=== PATIENT | female | born 1960 | race Caucasian/White ===

== ENCOUNTER 2017-04-18 16:34 | Emergency (ER) | payer MEDICARE, OTHER ==
[~2017-04-18] VITALS: Ht 160 cm; Wt 68.0 kg
[~2017-04-18 16:34] MED LIST: ALBU90OI INH; ALBU90OI6 INH; ALBU90OI61 INH; AMLO10 PO; AMLO5 PO; AZIT250 PO; BUDE6HFA INH; Bactrim Ds Tab1 EACH PO; CIPR500 PO; Cyclobenzaprine5 MG PO; DOCU100 PO; FERR325 PO; GUAI600T33 PO; HYDCHL25 PO; IRON; LEVO750 PO; LOSARTAN POTASS50 MG PO; Naprosyn500 MG PO; OXYACE5T PO; PRED20 PO; Prednisone10 MG PO; ROFL500T; RXTRAM50 PO; TIOT18 INH; TRAM50 PO; [UNRECOGNIZED DRUG - OTHER] PO
[2017-04-18] MEDS ORDERED: Augmentin 875-1 EACH PO (16:51)
[2018-02-01] MEDS ORDERED: Zithromax250 MG PO (21:57)
[2018-02-24] MEDS ORDERED: ATOR10 PO (13:50)
[2018-02-24] MEDS ORDERED: CLON.1 PO (13:51)
[2018-02-24] MEDS ORDERED: DILT120 PO (13:52)
[2018-02-24] MEDS ORDERED: DOXA1 PO (13:53)
[2018-02-24] MEDS ORDERED: HYDCHL25 PO (13:53)
[2018-02-24] MEDS ORDERED: PRED10 PO (14:14)
[2018-02-24] MEDS ORDERED: DULERA 100 MCG/13 GM INH (14:15)
== END 2017-04-18 16:54 | disposition home or self-care (01) ==
LOC: ER 16:34
DX: K04.7 Periapical abscess without sinus (principal); Z88.8 Allergy status to other drugs, medicaments and biological substances; Z88.5 Allergy status to narcotic agent; Z79.899 Other long term (current) drug therapy; Z79.52 Long term (current) use of systemic steroids; J44.9 Chronic obstructive pulmonary disease, unspecified; Z87.891 Personal history of nicotine dependence
CPT/HCPCS: 99282

== ENCOUNTER → 2017-08-04 | Outpatient (CLI) | payer MEDICARE, OTHER ==
[~2017-08-04] MED LIST changes: +Augmentin 875-1 EACH PO
[2017-08-04 12:40] LABS: BASOPHILS ABSOLUTE AUTO 0.06 K/mm3 (0.00-0.23); BASOPHILS PERCENT AUTO 1 % (0-2); EOSINOPHILS ABSOLUTE AUTO 1.25 K/mm3 (0.00-0.68); EOSINOPHILS PERCENT AUTO 16 % (0-6); Hematocrit 37.3 % (33.0-51.0); Hemoglobin 11.4 g/dL (11.5-16.0); IMMATURE GRAN ABSOLUTE AUTO 0.02 K/mm3 (0.00-0.10); IMMATURE GRAN PERCENT AUTO 0 % (0-1); LYMPHOCYTES ABSOLUTE AUTO 1.21 K/mm3 (0.84-5.20); LYMPHOCYTES PERCENT AUTO 15 % (21-46); MONOCYTES ABSOLUTE AUTO 0.76 K/mm3 (0.16-1.47); MONOCYTES PERCENT AUTO 10 % (4-13); Mean Corpuscular HGB 25.1 pg (26.0-34.0); Mean Corpuscular HGB Conc 30.6 g/dL (31.5-36.5); Mean Corpuscular Volume 82 fL (80-100); Mean Platelet Volume 9.4 fL (9.1-12.4); NEUTROPHILS ABSOLUTE AUTO 4.58 K/mm3 (1.96-9.15); NEUTROPHILS PERCENT AUTO 58 % (41-73); Platelet Count 288 K/mm3 (150-400); RDW Coefficient Variation 16.8 % (11.7-14.2); RDW Standard Deviation 50.1 fL (35.1-46.3); Red Blood Cell Count 4.54 M/mm3 (3.80-5.20); White Blood Cell Count 7.88 K/mm3 (4.00-11.30)
[2017-08-04 12:59] LABS: Alanine Aminotransfer (ALT/SGP 21 U/L (12-78); Albumin, Blood 4.1 g/dL (3.4-5.0); Alk Phos 92 U/L (40-126); Anion Gap 5 mmol/L (6-16); Aspartate Aminotrans (AST/SGOT 19 U/L (12-37); Bilirubin, Total 0.2 mg/dL (0.1-1.0); Blood Urea Nitrogen 8 mg/dL (8-24); Bun/Creatinine Ratio 14.5 (12.0-20.0); CO2, Blood 38 mmol/L (21-32); Calcium, Blood 9.7 mg/dL (8.5-10.1); Chloride, Blood 97 mmol/L (98-108); Creatinine, Blood 0.55 mg/dL (0.40-1.00); Glomerular Filtration Rate >60 (60-); Glucose, Blood 106 mg/dL (70-99); Sodium, Blood 140 mmol/L (136-145); Total Protein, Blood 8.1 g/dL (6.4-8.2)
== END | disposition home or self-care (01) ==
LOC: LAB SHORT 12:34 → LAB EV 12:34
PROVIDERS: Physician Assistant
DX: R06.02 Shortness of breath (principal); Z86.2 Personal history of diseases of the blood and blood-forming organs and certain disorders involving the immune mechanism
CPT/HCPCS: 80053; 83880; 85025

== ENCOUNTER 2017-08-30 03:09 | Inpatient (IN) | payer MEDICARE, OTHER ==
[~2017-08-30] VITALS: Ht 160 cm; Wt 72.4 kg
[2017-08-30] MEDS ORDERED: ACET325 PO (03:22)
[2017-08-30 03:23] LABS: BASOPHILS ABSOLUTE AUTO 0.08 K/mm3 (0.00-0.23); BASOPHILS PERCENT AUTO 1 % (0-2); EOSINOPHILS ABSOLUTE AUTO 0.59 K/mm3 (0.00-0.68); EOSINOPHILS PERCENT AUTO 5 % (0-6); Hemoglobin 11.7 g/dL (11.5-16.0); IMMATURE GRAN ABSOLUTE AUTO 0.02 K/mm3 (0.00-0.10); IMMATURE GRAN PERCENT AUTO 0 % (0-1); LYMPHOCYTES ABSOLUTE AUTO 1.94 K/mm3 (0.84-5.20); LYMPHOCYTES PERCENT AUTO 16 % (21-46); MONOCYTES ABSOLUTE AUTO 1.29 K/mm3 (0.16-1.47); MONOCYTES PERCENT AUTO 11 % (4-13); Mean Corpuscular HGB 25.5 pg (26.0-34.0); Mean Corpuscular HGB Conc 30.8 g/dL (31.5-36.5); Mean Corpuscular Volume 83 fL (80-100); Mean Platelet Volume 9.4 fL (9.1-12.4); NEUTROPHILS ABSOLUTE AUTO 8.08 K/mm3 (1.96-9.15); NEUTROPHILS PERCENT AUTO 67 % (41-73); Platelet Count 392 K/mm3 (150-400); RDW Standard Deviation 48.6 fL (35.1-46.3); Red Blood Cell Count 4.58 M/mm3 (3.80-5.20)
[2017-08-30] MEDS ORDERED: INCRUSE ELLI62.5 MCG INH (03:23)
[2017-08-30] MEDS ORDERED: BREO ELLIPTA 11 EACH INH (03:24)
[2017-08-30 03:25] LABS: PCO2 Arterial 76.5 mmHg (35-45); pH Blood Arterial 7.27 (7.35-7.45)
[2017-08-30 03:43] LABS: Alanine Aminotransfer (ALT/SGP 18 U/L (12-78); Alk Phos 130 U/L (50-136); Anion Gap 9 mmol/L (6-16); Aspartate Aminotrans (AST/SGOT 19 U/L (12-37); Bilirubin, Total 0.6 mg/dL (0.1-1.0); Blood Urea Nitrogen 14 mg/dL (8-24); Bun/Creatinine Ratio 21.9 (12.0-20.0); CO2, Blood 32 mmol/L (21-32); Calcium, Blood 9.4 mg/dL (8.5-10.1); Chloride, Blood 96 mmol/L (98-108); Creatinine, Blood 0.64 mg/dL (0.40-1.00); Globulin, Blood 4.1 g/dL (2.2-4.0); Glomerular Filtration Rate >60 (60-); Glucose, Blood 176 mg/dL (70-99); Magnesium, Blood 1.7 mg/dL (1.6-2.4); Potassium, Blood 3.6 mmol/L (3.5-5.5); Sodium, Blood 137 mmol/L (136-145); Total Protein, Blood 8.1 g/dL (6.4-8.2); Troponin I <0.015 ng/mL (0.000-0.040)
[2017-08-30] MEDS ORDERED: Phentermine HCl30 MG (05:23)
[2017-08-30] MEDS ORDERED: Phentermine HCl30 MG PO (12:15)
[2017-08-30] MEDS ORDERED: IBUP800 PO (12:16)
[2017-08-30 14:19] LABS: PCO2 Arterial 62.7 mmHg (35-45); PO2 Arterial 84.7 mmHg (80-100); pH Blood Arterial 7.37 (7.35-7.45)
[2017-08-30 15:20] LABS: Hematocrit 34.2 % (33.0-51.0); Hemoglobin 10.7 g/dL (11.5-16.0); Mean Corpuscular HGB 25.6 pg (26.0-34.0); Mean Corpuscular HGB Conc 31.3 g/dL (31.5-36.5); Mean Corpuscular Volume 82 fL (80-100); Mean Platelet Volume 9.9 fL (9.1-12.4); Platelet Count 251 K/mm3 (150-400); Red Blood Cell Count 4.18 M/mm3 (3.80-5.20); White Blood Cell Count 7.59 K/mm3 (4.00-11.30)
[2017-08-30 15:37] LABS: Alanine Aminotransfer (ALT/SGP 17 U/L (12-78); Albumin, Blood 3.7 g/dL (3.4-5.0); Alk Phos 122 U/L (50-136); Anion Gap 10 mmol/L (6-16); Aspartate Aminotrans (AST/SGOT 19 U/L (12-37); Bilirubin, Total 0.4 mg/dL (0.1-1.0); Blood Urea Nitrogen 14 mg/dL (8-24); Bun/Creatinine Ratio 25.5 (12.0-20.0); CO2, Blood 32 mmol/L (21-32); Calcium, Blood 9.3 mg/dL (8.5-10.1); Chloride, Blood 95 mmol/L (98-108); Creatinine, Blood 0.55 mg/dL (0.40-1.00); Globulin, Blood 3.8 g/dL (2.2-4.0); Glomerular Filtration Rate >60 (60-); Glucose, Blood 195 mg/dL (70-99); Potassium, Blood 3.2 mmol/L (3.5-5.5); Sodium, Blood 137 mmol/L (136-145); Total Protein, Blood 7.5 g/dL (6.4-8.2)
[2017-08-31 04:48] LABS: Hematocrit 32.5 % (33.0-51.0); Hemoglobin 10.1 g/dL (11.5-16.0); Mean Corpuscular HGB 25.8 pg (26.0-34.0); Mean Corpuscular HGB Conc 31.1 g/dL (31.5-36.5); Mean Corpuscular Volume 83 fL (80-100); Mean Platelet Volume 10.2 fL (9.1-12.4); Platelet Count 270 K/mm3 (150-400); RDW Coefficient Variation 16.1 % (11.7-14.2); RDW Standard Deviation 49.4 fL (35.1-46.3); Red Blood Cell Count 3.91 M/mm3 (3.80-5.20); White Blood Cell Count 10.91 K/mm3 (4.00-11.30)
[2017-08-31 05:08] LABS: Anion Gap 5 mmol/L (6-16); Blood Urea Nitrogen 12 mg/dL (8-24); Bun/Creatinine Ratio 24.6 (12.0-20.0); CO2, Blood 32 mmol/L (21-32); Calcium, Blood 8.7 mg/dL (8.5-10.1); Chloride, Blood 103 mmol/L (98-108); Creatinine, Blood 0.49 mg/dL (0.40-1.00); Glomerular Filtration Rate >60 (60-); Glucose, Blood 176 mg/dL (70-99); Potassium, Blood 3.5 mmol/L (3.5-5.5); Sodium, Blood 140 mmol/L (136-145)
[2017-09-02] MEDS ORDERED: Mucinex1200 MG PO (11:32)
[2017-09-02] MEDS ORDERED: ALBU3IS INH (11:33)
[2017-09-02] MEDS ORDERED: LEVFLO500 PO (11:34)
[2017-09-02] MEDS ORDERED: ACIDOPHILUS1 EAC2 PO (11:36)
[2017-09-02] MEDS ORDERED: PRED20 PO (11:37)
== END 2017-09-02 12:32 | disposition home or self-care (01) | DRG 189 ==
LOC: ER 03:09 → ICUW 04:32 → MEDS 08-31 12:30
PROVIDERS: Emergency Medicine; Internal Medicine
DX: J96.21 Acute and chronic respiratory failure with hypoxia (principal); J44.1 Chronic obstructive pulmonary disease with (acute) exacerbation; I10 Essential (primary) hypertension; I45.6 Pre-excitation syndrome
CPT/HCPCS: 36415; 36600; 71045; 80048; 80053; 82803; 83605; 83735; 83880; 84484; 85025; 85027; 87040; 94640; 94644; 94660; 94760; 96365; 96375; 96376; 99285; J0360; J1650; J1956; J2060; J2930; J3010; J3475; J7030

== ENCOUNTER 2017-09-24 16:08 | Observation (INO) | payer MEDICARE, OTHER ==
[~2017-09-24] VITALS: Ht 160 cm; Wt 71.8 kg
[~2017-09-24 16:08] MED LIST changes: +ACET325 PO; +ACIDOPHILUS1 EAC2 PO; +ALBU3IS INH; +BREO ELLIPTA 11 EACH INH; +IBUP800 PO; +INCRUSE ELLI62.5 MCG INH; +LEVFLO500 PO; +Mucinex1200 MG PO; +Phentermine HCl30 MG; +Phentermine HCl30 MG PO
[2017-09-24 16:41] LABS: PCO2 Arterial 53.7 mmHg (35-45); PO2 Arterial 110 mmHg (80-100); pH Blood Arterial 7.41 (7.35-7.45)
[2017-09-24 17:09] LABS: BASOPHILS ABSOLUTE AUTO 0.02 K/mm3 (0.00-0.23); BASOPHILS PERCENT AUTO 0 % (0-2); EOSINOPHILS ABSOLUTE AUTO 1.15 K/mm3 (0.00-0.68); EOSINOPHILS PERCENT AUTO 23 % (0-6); Hematocrit 33.6 % (33.0-51.0); Hemoglobin 10.3 g/dL (11.5-16.0); IMMATURE GRAN ABSOLUTE AUTO 0.02 K/mm3 (0.00-0.10); IMMATURE GRAN PERCENT AUTO 0 % (0-1); LYMPHOCYTES PERCENT AUTO 20 % (21-46); MONOCYTES ABSOLUTE AUTO 0.61 K/mm3 (0.16-1.47); MONOCYTES PERCENT AUTO 12 % (4-13); Mean Corpuscular HGB 25.9 pg (26.0-34.0); Mean Corpuscular HGB Conc 30.7 g/dL (31.5-36.5); Mean Corpuscular Volume 84 fL (80-100); Mean Platelet Volume 9.6 fL (9.1-12.4); NEUTROPHILS ABSOLUTE AUTO 2.32 K/mm3 (1.96-9.15); NEUTROPHILS PERCENT AUTO 45 % (41-73); Platelet Count 283 K/mm3 (150-400); RDW Coefficient Variation 14.7 % (11.7-14.2); Red Blood Cell Count 3.98 M/mm3 (3.80-5.20); White Blood Cell Count 5.12 K/mm3 (4.00-11.30)
[2017-09-24 17:35] LABS: Alanine Aminotransfer (ALT/SGP 18 U/L (12-78); Albumin, Blood 3.6 g/dL (3.4-5.0); Alk Phos 102 U/L (50-136); Anion Gap 6 mmol/L (6-16); Aspartate Aminotrans (AST/SGOT 18 U/L (12-37); Bilirubin, Total 0.3 mg/dL (0.1-1.0); Blood Urea Nitrogen 8 mg/dL (8-24); Bun/Creatinine Ratio 14.1 (12.0-20.0); CO2, Blood 34 mmol/L (21-32); Calcium, Blood 9.4 mg/dL (8.5-10.1); Chloride, Blood 99 mmol/L (98-108); Creatinine, Blood 0.57 mg/dL (0.40-1.00); Globulin, Blood 3.7 g/dL (2.2-4.0); Glomerular Filtration Rate >60 (60-); Glucose, Blood 101 mg/dL (70-99); Potassium, Blood 3.2 mmol/L (3.5-5.5); Sodium, Blood 139 mmol/L (136-145); Total Protein, Blood 7.3 g/dL (6.4-8.2); Troponin I <0.015 ng/mL (0.000-0.040)
[2017-09-24] MEDS ORDERED: Phentermine HCl30 MG PO (21:44)
[2017-09-25 04:27] LABS: Hematocrit 35.2 % (33.0-51.0); Hemoglobin 10.8 g/dL (11.5-16.0); Mean Corpuscular HGB 25.2 pg (26.0-34.0); Mean Corpuscular HGB Conc 30.7 g/dL (31.5-36.5); Mean Corpuscular Volume 82 fL (80-100); Mean Platelet Volume 9.6 fL (9.1-12.4); Platelet Count 272 K/mm3 (150-400); RDW Coefficient Variation 14.6 % (11.7-14.2); RDW Standard Deviation 44.3 fL (35.1-46.3); Red Blood Cell Count 4.28 M/mm3 (3.80-5.20); White Blood Cell Count 4.66 K/mm3 (4.00-11.30)
[2017-09-25 04:41] LABS: Anion Gap 6 mmol/L (6-16); Blood Urea Nitrogen 13 mg/dL (8-24); Bun/Creatinine Ratio 21.5 (12.0-20.0); CO2, Blood 33 mmol/L (21-32); Calcium, Blood 9.1 mg/dL (8.5-10.1); Chloride, Blood 100 mmol/L (98-108); Creatinine, Blood 0.61 mg/dL (0.40-1.00); Glomerular Filtration Rate >60 (60-); Glucose, Blood 228 mg/dL (70-99); Potassium, Blood 3.8 mmol/L (3.5-5.5); Sodium, Blood 139 mmol/L (136-145)
[2017-09-25] MEDS ORDERED: PRED20 PO (13:40)
== END 2017-09-25 14:28 | disposition home or self-care (01) ==
LOC: ER 16:08 → MEDS 16:09 → ENPENDDIS 09-25 11:45 → MEDS 09-25 14:28
PROVIDERS: Emergency Medicine; Nurse Practitioner Acute Care
DX: J44.1 Chronic obstructive pulmonary disease with (acute) exacerbation (principal); I10 Essential (primary) hypertension; D64.9 Anemia, unspecified; E87.6 Hypokalemia; J30.9 Allergic rhinitis, unspecified; R73.9 Hyperglycemia, unspecified; T50.905A Adverse effect of unspecified drugs, medicaments and biological substances, initial encounter; Z88.5 Allergy status to narcotic agent; Z88.7 Allergy status to serum and vaccine; Z88.8 Allergy status to other drugs, medicaments and biological substances; Z79.899 Other long term (current) drug therapy; Z79.01 Long term (current) use of anticoagulants
CPT/HCPCS: 36415; 36600; 71046; 80048; 80053; 82803; 83880; 84145; 84484; 85025; 85027; 93005; 93010; 94640; 94760; 96372; 96374; 96375; 96376; 99285; G0378; J1200; J1650; J1956; J2920; J2930

== ENCOUNTER 2018-02-08 12:04 | Emergency (ER) | payer MEDICARE, OTHER ==
[~2018-02-08] VITALS: Ht 160 cm; Wt 69.8 kg
[~2018-02-08 12:04] MED LIST changes: +Zithromax250 MG PO
[2018-02-08 13:29] LABS: BASOPHILS ABSOLUTE AUTO 0.11 K/mm3 (0.00-0.23); BASOPHILS PERCENT AUTO 1 % (0-2); EOSINOPHILS PERCENT AUTO 19 % (0-6); Hematocrit 39.6 % (33.0-51.0); Hemoglobin 12.2 g/dL (11.5-16.0); IMMATURE GRAN ABSOLUTE AUTO 0.03 K/mm3 (0.00-0.10); IMMATURE GRAN PERCENT AUTO 0 % (0-1); LYMPHOCYTES PERCENT AUTO 14 % (21-46); MONOCYTES ABSOLUTE AUTO 0.91 K/mm3 (0.16-1.47); MONOCYTES PERCENT AUTO 11 % (4-13); Mean Corpuscular HGB 27.8 pg (26.0-34.0); Mean Corpuscular HGB Conc 30.8 g/dL (31.5-36.5); Mean Corpuscular Volume 90 fL (80-100); Mean Platelet Volume 9.7 fL (9.1-12.4); NEUTROPHILS ABSOLUTE AUTO 4.57 K/mm3 (1.96-9.15); NEUTROPHILS PERCENT AUTO 54 % (41-73); Platelet Count 334 K/mm3 (150-400); RDW Coefficient Variation 13.9 % (11.7-14.2); RDW Standard Deviation 45.7 fL (35.1-46.3); Red Blood Cell Count 4.39 M/mm3 (3.80-5.20); White Blood Cell Count 8.42 K/mm3 (4.00-11.30)
[2018-02-08 13:53] LABS: Alanine Aminotransfer (ALT/SGP 16 U/L (12-78); Albumin, Blood 3.8 g/dL (3.4-5.0); Albumin/Globulin Ratio 1.2 (0.8-1.8); Alk Phos 87 U/L (50-136); Anion Gap 5 mmol/L (6-16); Aspartate Aminotrans (AST/SGOT 14 U/L (12-37); Bilirubin, Total 0.4 mg/dL (0.1-1.0); Blood Urea Nitrogen 14 mg/dL (8-24); Bun/Creatinine Ratio 24.2 (12.0-20.0); CO2, Blood 39 mmol/L (21-32); Calcium, Blood 9.2 mg/dL (8.5-10.1); Chloride, Blood 93 mmol/L (98-108); Creatinine, Blood 0.58 mg/dL (0.40-1.00); Globulin, Blood 3.3 g/dL (2.2-4.0); Glomerular Filtration Rate >60 (60-); Glucose, Blood 114 mg/dL (70-99); Potassium, Blood 3.6 mmol/L (3.5-5.5); Sodium, Blood 137 mmol/L (136-145); Total Protein, Blood 7.1 g/dL (6.4-8.2)
[2018-02-08 14:12] LABS: Base Excess Venous 15.8 mmol/L; Bicarbonate Venous 36.3 mmol/L (24.0-30.0); PCO2 Venous 68.2 mmHg (38-42); pH Blood Venous 7.39 (7.34-7.37)
[2018-02-08] MEDS ORDERED: Prednisone20 MG PO (15:02)
== END 2018-02-08 15:15 | disposition home or self-care (01) ==
LOC: ER 12:04
PROVIDERS: Emergency Medicine
DX: J44.1 Chronic obstructive pulmonary disease with (acute) exacerbation (principal); Z88.1 Allergy status to other antibiotic agents; Z88.5 Allergy status to narcotic agent; Z88.7 Allergy status to serum and vaccine; Z79.899 Other long term (current) drug therapy; Z79.52 Long term (current) use of systemic steroids
CPT/HCPCS: 36415; 71046; 80053; 82803; 83880; 84484; 85025; 94640; 94644; 99285-25

== ENCOUNTER 2018-08-02 00:28 | Day surgery (SDC) | payer MEDICARE, OTHER ==
[~2018-08-02 00:28] MED LIST changes: +ATOR10 PO; +CLON.1 PO; +DILT120 PO; +DOXA1 PO; +DULERA 100 MCG/13 GM INH; +PRED10 PO; +Prednisone20 MG PO
[2018-08-02] MEDS ORDERED: MONT10T PO (11:07)
== END 2018-08-02 11:35 | disposition home or self-care (01) ==
LOC: ATC 00:28
DX: J45.901 Unspecified asthma with (acute) exacerbation (principal); J44.9 Chronic obstructive pulmonary disease, unspecified; Z87.891 Personal history of nicotine dependence; Z88.8 Allergy status to other drugs, medicaments and biological substances; Z88.5 Allergy status to narcotic agent
CPT/HCPCS: 96372; J2357

== ENCOUNTER 2018-08-16 00:33 | Day surgery (SDC) | payer MEDICARE, OTHER ==
[~2018-08-16 00:33] MED LIST changes: +MONT10T PO
== END 2018-08-16 22:37 | disposition home or self-care (01) ==
LOC: ATC 00:33
DX: J45.901 Unspecified asthma with (acute) exacerbation (principal); J44.9 Chronic obstructive pulmonary disease, unspecified; Z87.891 Personal history of nicotine dependence; Z88.5 Allergy status to narcotic agent; Z88.7 Allergy status to serum and vaccine
CPT/HCPCS: J2357

== ENCOUNTER 2018-09-13 00:07 | Day surgery (SDC) | payer MEDICARE, OTHER ==
[2019-01-24] MEDS ORDERED: XOLAIR150 MG/1 M SC (10:54)
== END 2018-09-13 11:29 | disposition home or self-care (01) ==
LOC: ATC 00:07
DX: J45.901 Unspecified asthma with (acute) exacerbation (principal); J44.9 Chronic obstructive pulmonary disease, unspecified; Z87.891 Personal history of nicotine dependence; Z79.899 Other long term (current) drug therapy; Z79.52 Long term (current) use of systemic steroids; Z88.5 Allergy status to narcotic agent
CPT/HCPCS: 96372; J2357

== ENCOUNTER 2018-10-04 00:12 | Day surgery (SDC) | payer MEDICARE, OTHER ==
--- NOTE | 2018-10-04 15:14 | NUR ---
BP: LEFT ARM BP 219\106 AND RIGHT ARM BP 217/101, ENCOURAGED PT TO SEEK MEDICAL ADVICE ON HTN. PT WHEELED TO ER BY GRANDDAUGTHER AND FRIEND, REPORTED OFF TO NAOMI ARMENDARIZ IN ER. PT HAS HX OF HTN
[2018-10-04] MEDS ORDERED: LOSARTAN-HCTZ1 EAC2 PO (17:02)
[2018-10-04] MEDS ORDERED: AMLO5 PO (17:02)
[2019-01-24] MEDS ORDERED: XOLAIR150 MG/1 M SC (10:54)
== END 2018-10-04 15:00 | disposition home or self-care (01) ==
LOC: ATC 00:12
DX: J45.901 Unspecified asthma with (acute) exacerbation (principal); J44.9 Chronic obstructive pulmonary disease, unspecified; Z87.891 Personal history of nicotine dependence; Z79.899 Other long term (current) drug therapy; Z79.52 Long term (current) use of systemic steroids; Z88.0 Allergy status to penicillin; Z88.5 Allergy status to narcotic agent; I10 Essential (primary) hypertension
CPT/HCPCS: 96372; 99283; J2357

== ENCOUNTER 2018-10-25 00:03 | Day surgery (SDC) | payer MEDICARE, OTHER ==
[~2018-10-25 00:03] MED LIST changes: +LOSARTAN-HCTZ1 EAC2 PO
[2018-10-25] MEDS ORDERED: XOLAIR150 MG/1 M SC (12:41)
[2019-01-24] MEDS ORDERED: XOLAIR150 MG/1 M SC (10:54)
== END 2018-10-25 11:06 | disposition home or self-care (01) ==
LOC: ATC 00:03
DX: J45.901 Unspecified asthma with (acute) exacerbation (principal); J44.9 Chronic obstructive pulmonary disease, unspecified; Z87.891 Personal history of nicotine dependence; Z79.899 Other long term (current) drug therapy; Z79.51 Long term (current) use of inhaled steroids; Z88.5 Allergy status to narcotic agent; Z88.7 Allergy status to serum and vaccine
CPT/HCPCS: 96372; J2357

== ENCOUNTER 2018-11-03 09:57 | Emergency (ER) | payer MEDICARE, OTHER ==
[~2018-11-03] VITALS: Ht 160 cm; Wt 66.7 kg
[~2018-11-03 09:57] MED LIST changes: +XOLAIR150 MG/1 M SC
[2018-11-03 11:05] LABS: BASOPHILS ABSOLUTE AUTO 0.04 K/mm3 (0.00-0.23); BASOPHILS PERCENT AUTO 0 % (0-2); EOSINOPHILS ABSOLUTE AUTO 0.71 K/mm3 (0.00-0.68); EOSINOPHILS PERCENT AUTO 6 % (0-6); Hematocrit 40.8 % (33.0-51.0); Hemoglobin 12.8 g/dL (11.5-16.0); IMMATURE GRAN ABSOLUTE AUTO 0.05 K/mm3 (0.00-0.10); IMMATURE GRAN PERCENT AUTO 0 % (0-1); LYMPHOCYTES ABSOLUTE AUTO 0.49 K/mm3 (0.84-5.20); LYMPHOCYTES PERCENT AUTO 4 % (21-46); MONOCYTES ABSOLUTE AUTO 0.92 K/mm3 (0.16-1.47); MONOCYTES PERCENT AUTO 7 % (4-13); Mean Corpuscular HGB Conc 31.4 g/dL (31.5-36.5); Mean Corpuscular Volume 93 fL (80-100); NEUTROPHILS ABSOLUTE AUTO 10.17 K/mm3 (1.96-9.15); NEUTROPHILS PERCENT AUTO 82 % (41-73); Platelet Count 208 K/mm3 (150-400); RDW Coefficient Variation 12.5 % (11.7-14.2); RDW Standard Deviation 43.2 fL (35.1-46.3); Red Blood Cell Count 4.41 M/mm3 (3.80-5.20); White Blood Cell Count 12.38 K/mm3 (4.00-11.30)
[2018-11-03 11:27] LABS: Alanine Aminotransfer (ALT/SGP 16 U/L (12-78); Albumin, Blood 3.5 g/dL (3.4-5.0); Albumin/Globulin Ratio 0.9 (0.8-1.8); Alk Phos 151 U/L (50-136); Anion Gap 1 mmol/L (6-16); Aspartate Aminotrans (AST/SGOT 13 U/L (12-37); Bilirubin, Total 0.5 mg/dL (0.1-1.0); Blood Urea Nitrogen 12 mg/dL (8-24); Bun/Creatinine Ratio 21.1 (12.0-20.0); CO2, Blood 36 mmol/L (21-32); Calcium, Blood 9.3 mg/dL (8.5-10.1); Chloride, Blood 99 mmol/L (98-108); Creatinine, Blood 0.57 mg/dL (0.40-1.00); Globulin, Blood 3.7 g/dL (2.2-4.0); Glomerular Filtration Rate >60 (60-); Glucose, Blood 188 mg/dL (70-99); Potassium, Blood 3.4 mmol/L (3.5-5.5); Sodium, Blood 136 mmol/L (136-145); Total Protein, Blood 7.2 g/dL (6.4-8.2)
[2018-11-03] MEDS ORDERED: Percocet 5-3251 EACH PO (12:08)
[2018-11-03] MEDS ORDERED: IBUP400 PO (12:08)
[2018-11-03] MEDS ORDERED: Zofran8 MG PO (12:08)
[2019-01-24] MEDS ORDERED: XOLAIR150 MG/1 M SC (10:54)
== END 2018-11-03 12:34 | disposition home or self-care (01) ==
LOC: ER 09:57
PROVIDERS: Emergency Medicine
DX: L03.114 Cellulitis of left upper limb (principal); J44.9 Chronic obstructive pulmonary disease, unspecified; I10 Essential (primary) hypertension; Z87.891 Personal history of nicotine dependence
CPT/HCPCS: 29125; 80053; 85025; 96361-59; 96365-59; 96375-59; 96376-59; 99283-25; J0690; J1170; J7030; L3917

== ENCOUNTER 2018-11-08 00:17 | Day surgery (SDC) | payer MEDICARE, OTHER ==
[~2018-11-08 00:17] MED LIST changes: +IBUP400 PO; +Percocet 5-3251 EACH PO; +Zofran8 MG PO
[2018-11-08] MEDS ORDERED: IBUP400 PO (11:17)
[2018-11-08] MEDS ORDERED: AMOCLA875 PO (11:20)
[2019-01-24] MEDS ORDERED: XOLAIR150 MG/1 M SC (10:54)
== END 2018-11-08 11:10 | disposition home or self-care (01) ==
LOC: ATC 00:17
DX: J44.9 Chronic obstructive pulmonary disease, unspecified (principal); Z87.891 Personal history of nicotine dependence; Z88.5 Allergy status to narcotic agent; Z88.8 Allergy status to other drugs, medicaments and biological substances
CPT/HCPCS: 96372; J2357

== ENCOUNTER 2018-12-12 00:11 | Day surgery (SDC) | payer MEDICARE, OTHER ==
[~2018-12-12 00:11] MED LIST changes: +AMOCLA875 PO
[2019-01-24] MEDS ORDERED: XOLAIR150 MG/1 M SC (10:54)
== END 2018-12-12 11:14 | disposition home or self-care (01) ==
LOC: ATC 00:11
DX: J45.901 Unspecified asthma with (acute) exacerbation (principal); J44.9 Chronic obstructive pulmonary disease, unspecified; Z87.891 Personal history of nicotine dependence; Z88.8 Allergy status to other drugs, medicaments and biological substances; Z88.5 Allergy status to narcotic agent; Z79.899 Other long term (current) drug therapy; Z79.52 Long term (current) use of systemic steroids
CPT/HCPCS: 96372; J2357

== ENCOUNTER 2019-01-10 08:49 | Day surgery (SDC) | payer MEDICARE, OTHER ==
[2019-01-24] MEDS ORDERED: XOLAIR150 MG/1 M SC (10:54)
== END 2019-01-10 09:46 | disposition home or self-care (01) ==
LOC: ATC 08:49
DX: J45.901 Unspecified asthma with (acute) exacerbation (principal); J44.9 Chronic obstructive pulmonary disease, unspecified; Z87.891 Personal history of nicotine dependence; Z79.51 Long term (current) use of inhaled steroids; Z79.899 Other long term (current) drug therapy; Z88.8 Allergy status to other drugs, medicaments and biological substances; Z88.5 Allergy status to narcotic agent
CPT/HCPCS: 96372; J2357

== ENCOUNTER 2019-02-23 00:43 | Day surgery (SDC) | payer MEDICARE, OTHER | END 2019-02-23 15:23 | disposition home or self-care (01) | LOC: ATC 00:43 | DX: J45.901 Unspecified asthma with (acute) exacerbation (principal); J44.9 Chronic obstructive pulmonary disease, unspecified; Z87.891 Personal history of nicotine dependence; Z99.81 Dependence on supplemental oxygen; Z79.51 Long term (current) use of inhaled steroids; Z79.52 Long term (current) use of systemic steroids; Z79.899 Other long term (current) drug therapy; Z88.1 Allergy status to other antibiotic agents; Z88.5 Allergy status to narcotic agent; Z88.7 Allergy status to serum and vaccine | CPT/HCPCS: 96372; J2357 ==

== ENCOUNTER 2019-03-02 10:21 | Emergency (ER) | payer MEDICARE, OTHER ==
[~2019-03-02] VITALS: Ht 162.6 cm; Wt 72.6 kg
[2019-03-02] MEDS ORDERED: AMLO10 PO (10:50)
[2019-03-02] MEDS ORDERED: LOSARTAN-HCTZ1 EAC1 PO (10:51)
[2019-03-02] MEDS ORDERED: TIOT18 (10:53)
[2019-03-02 11:07] LABS: BASOPHILS ABSOLUTE AUTO 0.06 K/mm3 (0.00-0.23); BASOPHILS PERCENT AUTO 1 % (0-2); EOSINOPHILS ABSOLUTE AUTO 0.58 K/mm3 (0.00-0.68); EOSINOPHILS PERCENT AUTO 8 % (0-6); Hematocrit 43.2 % (33.0-51.0); Hemoglobin 13.9 g/dL (11.5-16.0); IMMATURE GRAN ABSOLUTE AUTO 0.02 K/mm3 (0.00-0.10); IMMATURE GRAN PERCENT AUTO 0 % (0-1); LYMPHOCYTES PERCENT AUTO 16 % (21-46); MONOCYTES ABSOLUTE AUTO 0.63 K/mm3 (0.16-1.47); MONOCYTES PERCENT AUTO 9 % (4-13); Mean Corpuscular HGB Conc 32.2 g/dL (31.5-36.5); Mean Corpuscular Volume 90 fL (80-100); Mean Platelet Volume 9.3 fL (9.1-12.4); NEUTROPHILS ABSOLUTE AUTO 4.51 K/mm3 (1.96-9.15); NEUTROPHILS PERCENT AUTO 65 % (41-73); Platelet Count 264 K/mm3 (150-400); RDW Coefficient Variation 12.2 % (11.7-14.2); RDW Standard Deviation 40.8 fL (35.1-46.3); Red Blood Cell Count 4.79 M/mm3 (3.80-5.20)
[2019-03-02 11:28] LABS: Anion Gap 7 mmol/L (6-16); Blood Urea Nitrogen 16 mg/dL (8-24); Bun/Creatinine Ratio 21.6 (12.0-20.0); CO2, Blood 32 mmol/L (21-32); Calcium, Blood 9.3 mg/dL (8.5-10.1); Chloride, Blood 101 mmol/L (98-108); Creatinine, Blood 0.74 mg/dL (0.40-1.00); Glomerular Filtration Rate >60 (60-); Glucose, Blood 91 mg/dL (70-99); Potassium, Blood 3.5 mmol/L (3.5-5.5); Sodium, Blood 140 mmol/L (136-145); Troponin I <0.015 ng/mL (0.000-0.040)
[2019-03-02 11:35] LABS: PCO2 Arterial 49.9 mmHg (35-45); PO2 Arterial 90.4 mmHg (80-100); pH Blood Arterial 7.41 (7.35-7.45)
[2019-03-02] MEDS ORDERED: Prednisone20 MG PO (12:24)
== END 2019-03-02 12:40 | disposition home or self-care (01) ==
LOC: ER 10:21
PROVIDERS: Emergency Medicine
DX: J44.1 Chronic obstructive pulmonary disease with (acute) exacerbation (principal); I10 Essential (primary) hypertension; Z87.891 Personal history of nicotine dependence; Z88.7 Allergy status to serum and vaccine; Z88.5 Allergy status to narcotic agent; Z88.1 Allergy status to other antibiotic agents; Z79.899 Other long term (current) drug therapy
CPT/HCPCS: 36415; 36600; 71045; 80048; 82803; 84484; 85025; 93005; 93010; 94644; 96361; 96374; 99284-25; J2930; J7030

== ENCOUNTER 2019-03-13 07:12 | Day surgery (SDC) | payer MEDICARE, OTHER ==
[~2019-03-13 07:12] MED LIST changes: +LOSARTAN-HCTZ1 EAC1 PO; +TIOT18
== END 2019-03-13 14:33 | disposition home or self-care (01) ==
LOC: ATC 07:12
DX: J45.901 Unspecified asthma with (acute) exacerbation (principal); J44.9 Chronic obstructive pulmonary disease, unspecified; Z79.51 Long term (current) use of inhaled steroids; Z79.52 Long term (current) use of systemic steroids; Z79.899 Other long term (current) drug therapy; Z88.5 Allergy status to narcotic agent; Z88.7 Allergy status to serum and vaccine; Z88.1 Allergy status to other antibiotic agents; Z87.891 Personal history of nicotine dependence
CPT/HCPCS: 96372; J2357

== ENCOUNTER 2019-03-27 00:08 | Day surgery (SDC) | payer MEDICARE, OTHER | END 2019-03-27 22:52 | disposition home or self-care (01) | LOC: ATC 00:08 | DX: J45.901 Unspecified asthma with (acute) exacerbation (principal); J44.9 Chronic obstructive pulmonary disease, unspecified; Z79.51 Long term (current) use of inhaled steroids; Z79.52 Long term (current) use of systemic steroids; Z79.899 Other long term (current) drug therapy; Z87.891 Personal history of nicotine dependence; Z88.1 Allergy status to other antibiotic agents; Z88.5 Allergy status to narcotic agent; Z88.7 Allergy status to serum and vaccine ==

== ENCOUNTER 2019-04-06 10:43 | Day surgery (SDC) | payer MEDICARE, OTHER | END 2019-04-06 11:10 | disposition home or self-care (01) | LOC: ATC 10:43 | DX: J45.901 Unspecified asthma with (acute) exacerbation (principal); J44.9 Chronic obstructive pulmonary disease, unspecified; Z87.891 Personal history of nicotine dependence; Z79.52 Long term (current) use of systemic steroids; Z79.51 Long term (current) use of inhaled steroids; Z79.899 Other long term (current) drug therapy; Z99.81 Dependence on supplemental oxygen; Z88.5 Allergy status to narcotic agent; Z88.1 Allergy status to other antibiotic agents; Z88.7 Allergy status to serum and vaccine; Z51.5 Encounter for palliative care | CPT/HCPCS: 96372; J2357 ==

== ENCOUNTER 2019-05-05 00:42 | Day surgery (SDC) | payer MEDICARE, OTHER | END 2019-05-05 11:18 | disposition home or self-care (01) | LOC: ATC 00:42 | DX: J45.901 Unspecified asthma with (acute) exacerbation (principal); J44.9 Chronic obstructive pulmonary disease, unspecified; Z87.891 Personal history of nicotine dependence; Z79.51 Long term (current) use of inhaled steroids; Z88.5 Allergy status to narcotic agent; Z88.7 Allergy status to serum and vaccine | CPT/HCPCS: J2357 ==

== ENCOUNTER 2019-05-19 02:01 | Day surgery (SDC) | payer MEDICARE, OTHER | END 2019-05-19 11:15 | disposition home or self-care (01) | LOC: ATC 02:01 | DX: J45.901 Unspecified asthma with (acute) exacerbation (principal); J44.9 Chronic obstructive pulmonary disease, unspecified; Z87.891 Personal history of nicotine dependence; Z79.51 Long term (current) use of inhaled steroids; Z79.899 Other long term (current) drug therapy; Z88.5 Allergy status to narcotic agent; Z88.7 Allergy status to serum and vaccine | CPT/HCPCS: 96372; J2357 ==

== ENCOUNTER 2019-06-02 00:59 | Day surgery (SDC) | payer MEDICARE, OTHER ==
[2019-06-02] MEDS ORDERED: XOLAIR150 MG/1 M SC (11:36)
== END 2019-06-02 11:34 | disposition home or self-care (01) ==
LOC: ATC 00:59
DX: J44.1 Chronic obstructive pulmonary disease with (acute) exacerbation (principal); J45.901 Unspecified asthma with (acute) exacerbation; Z87.891 Personal history of nicotine dependence; Z79.51 Long term (current) use of inhaled steroids; Z88.5 Allergy status to narcotic agent; Z88.7 Allergy status to serum and vaccine
CPT/HCPCS: 96372; J2357

== ENCOUNTER 2019-06-15 00:09 | Day surgery (SDC) | payer MEDICARE, OTHER | END 2019-06-15 11:10 | disposition home or self-care (01) | LOC: ATC 00:09 | DX: J44.1 Chronic obstructive pulmonary disease with (acute) exacerbation (principal); Z87.891 Personal history of nicotine dependence; Z79.51 Long term (current) use of inhaled steroids; Z79.52 Long term (current) use of systemic steroids; Z88.5 Allergy status to narcotic agent; Z88.7 Allergy status to serum and vaccine | CPT/HCPCS: 96372; J2357 ==

== ENCOUNTER 2019-06-28 00:16 | Day surgery (SDC) | payer MEDICARE, OTHER | END 2019-06-28 14:15 | disposition home or self-care (01) | LOC: ATC 00:16 | DX: J45.901 Unspecified asthma with (acute) exacerbation (principal); J44.9 Chronic obstructive pulmonary disease, unspecified; Z87.891 Personal history of nicotine dependence; Z88.5 Allergy status to narcotic agent; Z88.7 Allergy status to serum and vaccine; Z79.51 Long term (current) use of inhaled steroids; Z79.52 Long term (current) use of systemic steroids | CPT/HCPCS: J2357 ==

== ENCOUNTER 2019-08-08 00:05 | Day surgery (SDC) | payer MEDICARE, OTHER | END 2019-08-08 13:52 | disposition home or self-care (01) | LOC: ATC 00:05 | DX: J45.901 Unspecified asthma with (acute) exacerbation (principal); J44.1 Chronic obstructive pulmonary disease with (acute) exacerbation; Z87.891 Personal history of nicotine dependence; Z88.5 Allergy status to narcotic agent; Z88.7 Allergy status to serum and vaccine | CPT/HCPCS: J2357 ==

== ENCOUNTER 2019-09-07 00:07 | Day surgery (SDC) | payer MEDICARE, OTHER | END 2019-09-07 14:21 | disposition home or self-care (01) | LOC: ATC 00:07 | DX: J44.1 Chronic obstructive pulmonary disease with (acute) exacerbation (principal); Z87.891 Personal history of nicotine dependence; R09.02 Hypoxemia; Z88.5 Allergy status to narcotic agent; Z88.7 Allergy status to serum and vaccine | CPT/HCPCS: 96372; J2357 ==

== ENCOUNTER 2019-09-21 00:07 | Day surgery (SDC) | payer MEDICARE, OTHER | END 2019-09-21 10:53 | disposition home or self-care (01) | LOC: ATC 00:07 | DX: J44.1 Chronic obstructive pulmonary disease with (acute) exacerbation (principal); Z87.891 Personal history of nicotine dependence; R09.02 Hypoxemia; Z88.5 Allergy status to narcotic agent; Z88.7 Allergy status to serum and vaccine | CPT/HCPCS: 96372; J2357 ==

== ENCOUNTER 2019-10-06 01:53 | Day surgery (SDC) | payer MEDICARE, OTHER ==
[2019-10-26] MEDS ORDERED: LOSARTAN-HCTZ1 EAC5 PO (11:17)
== END 2019-10-06 14:18 | disposition home or self-care (01) ==
LOC: ATC 01:53
DX: J44.1 Chronic obstructive pulmonary disease with (acute) exacerbation (principal); Z87.891 Personal history of nicotine dependence; Z88.5 Allergy status to narcotic agent; Z88.7 Allergy status to serum and vaccine
CPT/HCPCS: 96372; J2357

== ENCOUNTER 2019-12-26 00:21 | Day surgery (SDC) | payer MEDICARE, OTHER ==
[~2019-12-26 00:21] MED LIST changes: +LOSARTAN-HCTZ1 EAC5 PO
== END 2019-12-26 14:25 | disposition home or self-care (01) ==
LOC: ATC 00:21
DX: J44.1 Chronic obstructive pulmonary disease with (acute) exacerbation (principal); Z87.891 Personal history of nicotine dependence; Z88.5 Allergy status to narcotic agent; Z88.7 Allergy status to serum and vaccine
CPT/HCPCS: 96372; J2357

== ENCOUNTER 2020-01-10 00:29 | Day surgery (SDC) | payer MEDICARE, OTHER | END 2020-01-10 14:59 | disposition home or self-care (01) | LOC: ATC 00:29 | DX: J44.1 Chronic obstructive pulmonary disease with (acute) exacerbation (principal); Z87.891 Personal history of nicotine dependence; Z88.7 Allergy status to serum and vaccine | CPT/HCPCS: 96372; J2357 ==

== ENCOUNTER 2020-02-01 14:00 | Day surgery (SDC) | payer MEDICARE, OTHER | END 2020-02-01 15:17 | disposition home or self-care (01) | LOC: ATC 14:00 | DX: J44.1 Chronic obstructive pulmonary disease with (acute) exacerbation (principal); Z87.891 Personal history of nicotine dependence; Z88.5 Allergy status to narcotic agent; Z88.7 Allergy status to serum and vaccine | CPT/HCPCS: 96372; J2357 ==

== ENCOUNTER 2020-02-15 00:12 | Day surgery (SDC) | payer MEDICARE, OTHER | END 2020-02-15 13:50 | disposition home or self-care (01) | LOC: ATC 00:12 | DX: J44.9 Chronic obstructive pulmonary disease, unspecified (principal); J45.901 Unspecified asthma with (acute) exacerbation; Z87.891 Personal history of nicotine dependence; Z79.51 Long term (current) use of inhaled steroids; Z79.899 Other long term (current) drug therapy; Z88.1 Allergy status to other antibiotic agents; Z88.5 Allergy status to narcotic agent; Z88.7 Allergy status to serum and vaccine; Z51.5 Encounter for palliative care | CPT/HCPCS: 96372; J2357 ==

== ENCOUNTER 2020-03-19 00:10 | Day surgery (SDC) | payer MEDICARE, OTHER | END 2020-03-19 14:13 | disposition home or self-care (01) | LOC: ATC 00:10 | DX: J44.9 Chronic obstructive pulmonary disease, unspecified (principal); J45.901 Unspecified asthma with (acute) exacerbation; R09.02 Hypoxemia; Z87.891 Personal history of nicotine dependence; Z88.1 Allergy status to other antibiotic agents; Z88.5 Allergy status to narcotic agent; Z88.7 Allergy status to serum and vaccine; Z79.51 Long term (current) use of inhaled steroids; Z79.899 Other long term (current) drug therapy | CPT/HCPCS: 96372; J2357 ==

== ENCOUNTER 2020-04-03 01:00 | Day surgery (SDC) | payer MEDICARE, OTHER | END 2020-04-03 14:25 | disposition home or self-care (01) | LOC: ATC 01:00 | DX: J44.9 Chronic obstructive pulmonary disease, unspecified (principal); R09.02 Hypoxemia; Z79.51 Long term (current) use of inhaled steroids; Z79.899 Other long term (current) drug therapy; Z88.1 Allergy status to other antibiotic agents; Z88.5 Allergy status to narcotic agent; Z88.7 Allergy status to serum and vaccine; Z87.891 Personal history of nicotine dependence | CPT/HCPCS: 96372; J2357 ==

== ENCOUNTER 2020-04-17 00:13 | Day surgery (SDC) | payer MEDICARE, OTHER | END 2020-04-17 15:30 | disposition home or self-care (01) | LOC: ATC 00:13 | DX: J44.9 Chronic obstructive pulmonary disease, unspecified (principal); R09.02 Hypoxemia; Z88.5 Allergy status to narcotic agent; Z88.7 Allergy status to serum and vaccine; Z87.891 Personal history of nicotine dependence; J45.901 Unspecified asthma with (acute) exacerbation | CPT/HCPCS: 96372; J2357 ==

== ENCOUNTER 2020-05-01 00:09 | Day surgery (SDC) | payer MEDICARE, OTHER | END 2020-05-01 14:43 | disposition home or self-care (01) | LOC: ATC 00:09 | DX: J44.9 Chronic obstructive pulmonary disease, unspecified (principal); J45.901 Unspecified asthma with (acute) exacerbation; R09.02 Hypoxemia; Z87.891 Personal history of nicotine dependence | CPT/HCPCS: 96372; J2357 ==

== ENCOUNTER 2020-05-14 00:34 | Day surgery (SDC) | payer MEDICARE, OTHER | END 2020-05-14 14:24 | disposition home or self-care (01) | LOC: ATC 00:34 | DX: J45.901 Unspecified asthma with (acute) exacerbation (principal); Z88.5 Allergy status to narcotic agent; Z87.891 Personal history of nicotine dependence; Z88.8 Allergy status to other drugs, medicaments and biological substances | CPT/HCPCS: 96372; J2357 ==

== ENCOUNTER 2020-06-03 00:43 | Day surgery (SDC) | payer MEDICARE, OTHER ==
[2020-06-03] MEDS ORDERED: LOMAIRA8 MG PO (14:38)
== END 2020-06-03 14:33 | disposition home or self-care (01) ==
LOC: ATC 00:43
DX: J44.9 Chronic obstructive pulmonary disease, unspecified (principal); R09.02 Hypoxemia; Z87.891 Personal history of nicotine dependence; Z88.7 Allergy status to serum and vaccine
CPT/HCPCS: 96372; J2357

== ENCOUNTER 2020-06-18 00:25 | Day surgery (SDC) | payer MEDICARE, OTHER ==
[~2020-06-18 00:25] MED LIST changes: +LOMAIRA8 MG PO
== END 2020-06-18 14:28 | disposition home or self-care (01) ==
LOC: ATC 00:25
DX: J44.9 Chronic obstructive pulmonary disease, unspecified (principal); J45.50 Severe persistent asthma, uncomplicated; I10 Essential (primary) hypertension; Z87.891 Personal history of nicotine dependence; Z79.899 Other long term (current) drug therapy
CPT/HCPCS: 96372; J2357

== ENCOUNTER 2020-07-02 00:17 | Day surgery (SDC) | payer MEDICARE, OTHER | END 2020-07-02 14:16 | disposition home or self-care (01) | LOC: ATC 00:17 | DX: J45.50 Severe persistent asthma, uncomplicated (principal); J44.9 Chronic obstructive pulmonary disease, unspecified; R09.02 Hypoxemia; I10 Essential (primary) hypertension; R00.0 Tachycardia, unspecified; Z87.891 Personal history of nicotine dependence; Z99.81 Dependence on supplemental oxygen; Z88.5 Allergy status to narcotic agent; Z88.7 Allergy status to serum and vaccine | CPT/HCPCS: 96372; J2357 ==

== ENCOUNTER 2020-07-16 00:16 | Day surgery (SDC) | payer MEDICARE, OTHER | END 2020-07-16 14:10 | disposition home or self-care (01) | LOC: ATC 00:16 | DX: J44.9 Chronic obstructive pulmonary disease, unspecified (principal); J45.50 Severe persistent asthma, uncomplicated; I10 Essential (primary) hypertension; Z87.891 Personal history of nicotine dependence; Z79.899 Other long term (current) drug therapy; Z99.81 Dependence on supplemental oxygen | CPT/HCPCS: J2357 ==

== ENCOUNTER 2020-07-30 00:07 | Day surgery (SDC) | payer MEDICARE, OTHER | END 2020-07-30 13:35 | disposition home or self-care (01) | LOC: ATC 00:07 | DX: J44.9 Chronic obstructive pulmonary disease, unspecified (principal); J45.50 Severe persistent asthma, uncomplicated; I10 Essential (primary) hypertension; Z87.891 Personal history of nicotine dependence; Z79.899 Other long term (current) drug therapy; Z99.81 Dependence on supplemental oxygen | CPT/HCPCS: J2357 ==

== ENCOUNTER 2020-08-13 00:43 | Day surgery (SDC) | payer MEDICARE, OTHER ==
[2020-08-13] MEDS ORDERED: DULERA 100 MCG/13 GM INH (13:56)
== END 2020-08-13 14:25 | disposition home or self-care (01) ==
LOC: ATC 00:43
DX: J45.50 Severe persistent asthma, uncomplicated (principal); J43.9 Emphysema, unspecified; I10 Essential (primary) hypertension; Z88.5 Allergy status to narcotic agent; Z88.7 Allergy status to serum and vaccine; Z79.899 Other long term (current) drug therapy
CPT/HCPCS: 96372; J2357

== ENCOUNTER 2020-08-29 04:07 | Day surgery (SDC) | payer MEDICARE, OTHER | END 2020-08-29 13:55 | disposition home or self-care (01) | LOC: ATC 04:07 | DX: J44.9 Chronic obstructive pulmonary disease, unspecified (principal); J45.50 Severe persistent asthma, uncomplicated; I10 Essential (primary) hypertension; Z87.891 Personal history of nicotine dependence | CPT/HCPCS: 96372; J2357 ==

== ENCOUNTER 2020-09-18 05:01 | Day surgery (SDC) | payer MEDICARE, OTHER | END 2020-09-18 14:05 | disposition home or self-care (01) | LOC: ATC 05:01 | DX: J44.9 Chronic obstructive pulmonary disease, unspecified (principal); Z99.81 Dependence on supplemental oxygen; Z87.891 Personal history of nicotine dependence; F32.9 Major depressive disorder, single episode, unspecified; I10 Essential (primary) hypertension | CPT/HCPCS: 96372; J2357 ==

== ENCOUNTER 2020-10-03 00:12 | Day surgery (SDC) | payer MEDICARE, OTHER | END 2020-10-03 10:52 | disposition home or self-care (01) | LOC: ATC 00:12 | DX: J44.9 Chronic obstructive pulmonary disease, unspecified (principal); I10 Essential (primary) hypertension; Z87.891 Personal history of nicotine dependence; Z79.51 Long term (current) use of inhaled steroids; Z88.5 Allergy status to narcotic agent; Z88.7 Allergy status to serum and vaccine; Z99.81 Dependence on supplemental oxygen | CPT/HCPCS: 96372; J2357 ==

== ENCOUNTER 2020-10-15 00:27 | Day surgery (SDC) | payer MEDICARE, OTHER | END 2020-10-15 14:11 | disposition home or self-care (01) | LOC: ATC 00:27 | DX: J43.9 Emphysema, unspecified (principal); J45.50 Severe persistent asthma, uncomplicated; I10 Essential (primary) hypertension; Z87.891 Personal history of nicotine dependence; Z79.51 Long term (current) use of inhaled steroids; Z99.81 Dependence on supplemental oxygen; Z88.5 Allergy status to narcotic agent; Z88.7 Allergy status to serum and vaccine | CPT/HCPCS: J2357 ==

== ENCOUNTER 2020-11-08 00:07 | Day surgery (SDC) | payer MEDICARE, OTHER | END 2020-11-08 14:34 | disposition home or self-care (01) | LOC: ATC 00:07 | DX: J44.9 Chronic obstructive pulmonary disease, unspecified (principal); J45.50 Severe persistent asthma, uncomplicated; R09.02 Hypoxemia; I10 Essential (primary) hypertension; Z87.891 Personal history of nicotine dependence; Z99.81 Dependence on supplemental oxygen | CPT/HCPCS: 96372; J2357 ==

== ENCOUNTER 2020-11-19 02:22 | Day surgery (SDC) | payer MEDICARE, OTHER | END 2020-11-19 13:55 | disposition home or self-care (01) | LOC: ATC 02:22 | DX: J44.9 Chronic obstructive pulmonary disease, unspecified (principal); J45.50 Severe persistent asthma, uncomplicated; I10 Essential (primary) hypertension; Z87.891 Personal history of nicotine dependence; Z88.5 Allergy status to narcotic agent; Z88.8 Allergy status to other drugs, medicaments and biological substances | CPT/HCPCS: 96372; J2357 ==

== ENCOUNTER 2021-01-03 00:13 | Day surgery (SDC) | payer MEDICARE, OTHER | END 2021-01-03 14:53 | disposition home or self-care (01) | LOC: ATC 00:13 | DX: J44.9 Chronic obstructive pulmonary disease, unspecified (principal); J45.50 Severe persistent asthma, uncomplicated; I10 Essential (primary) hypertension; Z87.891 Personal history of nicotine dependence | CPT/HCPCS: 96372; J2357 ==

== ENCOUNTER 2021-01-17 04:03 | Day surgery (SDC) | payer MEDICARE, OTHER | END 2021-01-17 13:58 | disposition home or self-care (01) | LOC: ATC 04:03 | DX: J45.50 Severe persistent asthma, uncomplicated (principal); I10 Essential (primary) hypertension; J43.9 Emphysema, unspecified; Z79.899 Other long term (current) drug therapy; Z88.5 Allergy status to narcotic agent; Z88.7 Allergy status to serum and vaccine; Z87.891 Personal history of nicotine dependence | CPT/HCPCS: 96372; J2357 ==

== ENCOUNTER 2021-01-31 05:08 | Day surgery (SDC) | payer MEDICARE, OTHER | END 2021-01-31 14:20 | disposition home or self-care (01) | LOC: ATC 05:08 | DX: Z23 Encounter for immunization (principal); I10 Essential (primary) hypertension; J43.9 Emphysema, unspecified; J45.50 Severe persistent asthma, uncomplicated; R09.02 Hypoxemia; Z79.899 Other long term (current) drug therapy; Z79.51 Long term (current) use of inhaled steroids; Z87.891 Personal history of nicotine dependence | CPT/HCPCS: 96372; J2357 ==

== ENCOUNTER 2021-02-14 04:10 | Day surgery (SDC) | payer MEDICARE, OTHER | END 2021-02-14 23:12 | disposition home or self-care (01) | LOC: ATC 04:10 | DX: J44.9 Chronic obstructive pulmonary disease, unspecified (principal); J45.50 Severe persistent asthma, uncomplicated; Z87.891 Personal history of nicotine dependence; I10 Essential (primary) hypertension ==

== ENCOUNTER → 2021-03-17 | Outpatient (CLI) | payer MEDICARE, OTHER ==
[2021-03-19 17:12] LABS: CORONAVIRUS (COVID19) CSH-NRL Positive (Negative)
== END ==
LOC: LAB SHORT 12:01 → LAB 12:01
PROVIDERS: Physician Assistant Medical
DX: Z20.822 Contact with and (suspected) exposure to COVID-19 (principal)
CPT/HCPCS: U0003

== ENCOUNTER 2021-04-10 05:00 | Day surgery (SDC) | payer MEDICARE, OTHER | END 2021-04-10 14:03 | disposition home or self-care (01) | LOC: ATC 05:00 | DX: J44.9 Chronic obstructive pulmonary disease, unspecified (principal); I10 Essential (primary) hypertension; Z87.891 Personal history of nicotine dependence | CPT/HCPCS: 96372; J2357 ==

== ENCOUNTER 2021-04-24 00:20 | Day surgery (SDC) | payer MEDICARE, OTHER | END 2021-04-24 13:15 | disposition home or self-care (01) | LOC: ATC 00:20 | DX: J43.9 Emphysema, unspecified (principal); J45.909 Unspecified asthma, uncomplicated; I10 Essential (primary) hypertension; Z87.891 Personal history of nicotine dependence | CPT/HCPCS: 96372; J2357 ==

== ENCOUNTER 2021-05-07 03:02 | Day surgery (SDC) | payer MEDICARE, OTHER | END 2021-05-07 14:09 | disposition home or self-care (01) | LOC: ATC 03:02 | DX: J43.9 Emphysema, unspecified (principal); J45.909 Unspecified asthma, uncomplicated; I10 Essential (primary) hypertension; Z88.5 Allergy status to narcotic agent; Z88.7 Allergy status to serum and vaccine; Z87.891 Personal history of nicotine dependence | CPT/HCPCS: J2357 ==

== ENCOUNTER 2021-05-22 01:47 | Day surgery (SDC) | payer MEDICARE, OTHER | END 2021-05-22 14:00 | disposition home or self-care (01) | LOC: ATC 01:47 | DX: J44.9 Chronic obstructive pulmonary disease, unspecified (principal); I10 Essential (primary) hypertension; Z88.5 Allergy status to narcotic agent; Z88.7 Allergy status to serum and vaccine; Z87.891 Personal history of nicotine dependence | CPT/HCPCS: 96372; J2357 ==

== ENCOUNTER 2021-06-05 00:15 | Day surgery (SDC) | payer MEDICARE, OTHER | END 2021-06-05 13:21 | disposition home or self-care (01) | LOC: ATC 00:15 | DX: J44.9 Chronic obstructive pulmonary disease, unspecified (principal); I10 Essential (primary) hypertension; Z87.891 Personal history of nicotine dependence; Z88.5 Allergy status to narcotic agent; Z88.7 Allergy status to serum and vaccine; Z79.899 Other long term (current) drug therapy | CPT/HCPCS: 96372; J2357 ==

== ENCOUNTER 2021-06-20 02:49 | Day surgery (SDC) | payer MEDICARE, OTHER | END 2021-06-20 11:10 | disposition home or self-care (01) | LOC: ATC 02:49 | DX: J44.9 Chronic obstructive pulmonary disease, unspecified (principal); I10 Essential (primary) hypertension; Z87.891 Personal history of nicotine dependence | CPT/HCPCS: 96372; J2357 ==

== ENCOUNTER 2021-07-04 00:48 | Day surgery (SDC) | payer MEDICARE, OTHER | END 2021-07-04 14:23 | disposition home or self-care (01) | LOC: ATC 00:48 | DX: J44.9 Chronic obstructive pulmonary disease, unspecified (principal); I10 Essential (primary) hypertension; Z88.5 Allergy status to narcotic agent; Z88.7 Allergy status to serum and vaccine; Z87.891 Personal history of nicotine dependence | CPT/HCPCS: J2357 ==

== ENCOUNTER 2021-07-18 00:54 | Day surgery (SDC) | payer MEDICARE, OTHER | END 2021-07-18 14:15 | disposition home or self-care (01) | LOC: ATC 00:54 | DX: J44.9 Chronic obstructive pulmonary disease, unspecified (principal); I10 Essential (primary) hypertension; Z88.5 Allergy status to narcotic agent; Z88.7 Allergy status to serum and vaccine; Z87.891 Personal history of nicotine dependence | CPT/HCPCS: J2357 ==

== ENCOUNTER 2021-08-01 00:45 | Day surgery (SDC) | payer MEDICARE, OTHER | END 2021-08-01 15:19 | disposition home or self-care (01) | LOC: ATC 00:45 | DX: J42 Unspecified chronic bronchitis (principal); I10 Essential (primary) hypertension; Z88.5 Allergy status to narcotic agent; Z88.7 Allergy status to serum and vaccine; Z87.891 Personal history of nicotine dependence | CPT/HCPCS: J2357 ==

== ENCOUNTER 2021-08-18 01:00 | Day surgery (SDC) | payer MEDICARE, OTHER | END 2021-08-18 14:09 | disposition home or self-care (01) | LOC: ATC 01:00 | DX: J43.9 Emphysema, unspecified (principal); I10 Essential (primary) hypertension; Z87.891 Personal history of nicotine dependence; Z79.899 Other long term (current) drug therapy | CPT/HCPCS: 96372; J2357 ==

== ENCOUNTER 2021-09-18 01:36 | Day surgery (SDC) | payer MEDICARE, OTHER | END 2021-09-18 15:06 | disposition home or self-care (01) | LOC: ATC 01:36 | DX: J44.9 Chronic obstructive pulmonary disease, unspecified (principal); R09.02 Hypoxemia | CPT/HCPCS: 96372; J2357 ==

== ENCOUNTER 2021-10-02 00:11 | Day surgery (SDC) | payer MEDICARE, OTHER | END 2021-10-02 14:40 | disposition home or self-care (01) | LOC: ATC 00:11 | DX: J43.9 Emphysema, unspecified (principal); R09.02 Hypoxemia; I10 Essential (primary) hypertension; Z87.891 Personal history of nicotine dependence; Z88.5 Allergy status to narcotic agent; Z88.7 Allergy status to serum and vaccine; Z79.899 Other long term (current) drug therapy | CPT/HCPCS: 96372; J2357 ==

== ENCOUNTER 2021-10-15 03:32 | Day surgery (SDC) | payer MEDICARE, OTHER | END 2021-10-15 14:50 | disposition home or self-care (01) | LOC: ATC 03:32 | DX: J43.9 Emphysema, unspecified (principal); I10 Essential (primary) hypertension; Z88.5 Allergy status to narcotic agent; Z87.891 Personal history of nicotine dependence | CPT/HCPCS: 96372; J2357 ==

== ENCOUNTER 2021-11-04 00:21 | Day surgery (SDC) | payer MEDICARE, OTHER | END 2021-11-04 15:30 | disposition home or self-care (01) | LOC: ATC 00:21 | DX: J44.9 Chronic obstructive pulmonary disease, unspecified (principal); I10 Essential (primary) hypertension; Z87.891 Personal history of nicotine dependence; Z88.5 Allergy status to narcotic agent; Z88.7 Allergy status to serum and vaccine | CPT/HCPCS: 96372; J2357 ==

== ENCOUNTER 2021-11-20 01:16 | Day surgery (SDC) | payer MEDICARE, OTHER | END 2021-11-20 14:08 | disposition home or self-care (01) | LOC: ATC 01:16 | DX: J43.9 Emphysema, unspecified (principal); I10 Essential (primary) hypertension; Z79.899 Other long term (current) drug therapy; Z79.51 Long term (current) use of inhaled steroids; Z88.5 Allergy status to narcotic agent; Z88.7 Allergy status to serum and vaccine; Z87.891 Personal history of nicotine dependence | CPT/HCPCS: 96372; J2357 ==

== ENCOUNTER 2021-12-04 00:07 | Day surgery (SDC) | payer MEDICARE, OTHER | END 2021-12-04 13:57 | disposition home or self-care (01) | LOC: ATC 00:07 | DX: J43.9 Emphysema, unspecified (principal); I10 Essential (primary) hypertension; Z87.891 Personal history of nicotine dependence; Z79.899 Other long term (current) drug therapy | CPT/HCPCS: 96372; J2357 ==

== ENCOUNTER 2022-01-01 01:54 | Day surgery (SDC) | payer MEDICARE, OTHER | END 2022-01-01 14:50 | disposition home or self-care (01) | LOC: ATC 01:54 | DX: J44.9 Chronic obstructive pulmonary disease, unspecified (principal); R09.02 Hypoxemia; Z87.891 Personal history of nicotine dependence | CPT/HCPCS: 96372; J2357 ==

== ENCOUNTER 2022-01-14 04:07 | Day surgery (SDC) | payer MEDICARE, OTHER | END 2022-01-14 14:43 | disposition home or self-care (01) | LOC: ATC 04:07 | DX: J43.9 Emphysema, unspecified (principal); I10 Essential (primary) hypertension; Z87.891 Personal history of nicotine dependence; Z88.5 Allergy status to narcotic agent; Z88.7 Allergy status to serum and vaccine; Z79.899 Other long term (current) drug therapy | CPT/HCPCS: 96372; J2357 ==

== ENCOUNTER 2022-02-13 00:49 | Day surgery (SDC) | payer MEDICARE, OTHER | END 2022-02-13 13:32 | disposition home or self-care (01) | LOC: ATC 00:49 | DX: J42 Unspecified chronic bronchitis (principal); I10 Essential (primary) hypertension; Z88.5 Allergy status to narcotic agent; Z88.7 Allergy status to serum and vaccine; Z87.891 Personal history of nicotine dependence | CPT/HCPCS: 96372; J2357 ==

== ENCOUNTER 2022-03-05 14:26 | Day surgery (SDC) | payer MEDICARE, OTHER | END 2022-03-05 14:49 | disposition home or self-care (01) | LOC: ATC 14:26 | DX: J45.901 Unspecified asthma with (acute) exacerbation (principal); F32.A Depression, unspecified; I10 Essential (primary) hypertension; F41.9 Anxiety disorder, unspecified | CPT/HCPCS: 96372; J2357 ==

== ENCOUNTER 2022-03-19 01:04 | Day surgery (SDC) | payer MEDICARE, OTHER | END 2022-03-19 14:15 | disposition home or self-care (01) | LOC: ATC 01:04 | DX: J45.901 Unspecified asthma with (acute) exacerbation (principal) | CPT/HCPCS: 96372; J2357 ==

== ENCOUNTER 2022-04-03 00:10 | Day surgery (SDC) | payer MEDICARE, OTHER ==
[2022-04-03] MEDS ORDERED: Prednisone20 MG PO (20:07)
[2022-04-04] MEDS ORDERED: Prednisone20 MG PO (11:31)
== END 2022-04-03 13:58 | disposition home or self-care (01) ==
LOC: ATC 00:10
DX: J45.901 Unspecified asthma with (acute) exacerbation (principal)
CPT/HCPCS: J2357

== ENCOUNTER 2022-04-03 14:07 | Emergency (ER) | payer MEDICARE, OTHER ==
[~2022-04-03] VITALS: Ht 162.6 cm; Wt 65.8 kg
[2022-04-03 16:10] LABS: BASOPHILS ABSOLUTE AUTO 0.07 K/mm3 (0.00-0.23); BASOPHILS PERCENT AUTO 1 % (0-2); EOSINOPHILS ABSOLUTE AUTO 0.36 K/mm3 (0.00-0.68); EOSINOPHILS PERCENT AUTO 5 % (0-6); Hematocrit 36.4 % (33.0-51.0); Hemoglobin 12.1 g/dL (11.5-16.0); IMMATURE GRAN ABSOLUTE AUTO 0.01 K/mm3 (0.00-0.10); IMMATURE GRAN PERCENT AUTO 0 % (0-1); LYMPHOCYTES PERCENT AUTO 20 % (21-46); MONOCYTES ABSOLUTE AUTO 0.76 K/mm3 (0.16-1.47); MONOCYTES PERCENT AUTO 10 % (4-13); Mean Corpuscular HGB 29.1 pg (26.0-34.0); Mean Corpuscular HGB Conc 33.2 g/dL (31.5-36.5); Mean Corpuscular Volume 88 fL (80-100); Mean Platelet Volume 9.9 fL (9.1-12.4); NEUTROPHILS PERCENT AUTO 64 % (41-73); Platelet Count 250 K/mm3 (150-400); RDW Coefficient Variation 11.9 % (11.7-14.2); RDW Standard Deviation 38.8 fL (35.1-46.3); Red Blood Cell Count 4.16 M/mm3 (3.80-5.20)
[2022-04-03 16:27] LABS: Albumin, Blood 4.2 g/dL (3.4-5.0); Albumin/Globulin Ratio 1.4 (0.8-1.8); Bilirubin, Total 0.3 mg/dL (0.1-1.0); Bun/Creatinine Ratio 22.1 (12.0-20.0); Calcium, Blood 9.9 mg/dL (8.5-10.1); Creatinine, Blood 0.77 mg/dL (0.40-1.00); Potassium, Blood 3.4 mmol/L (3.5-5.5); Total Protein, Blood 7.2 g/dL (6.4-8.2)
[2022-04-03 18:58] LABS: PCO2 Arterial 51.2 mmHg (35-45); PO2 Arterial 92.5 mmHg (80-100); pH Blood Arterial 7.42 (7.35-7.45)
[2022-04-03 19:15] LABS: Influenza A, PCR NEGATIVE (NEGATIVE); Influenza B, PCR NEGATIVE (NEGATIVE); Resp Syncytial Virus, PCR NEGATIVE (NEGATIVE); SARS-Cov-2 (COVID-19) PCR, MMC NEGATIVE (NEGATIVE)
[2022-04-03] MEDS ORDERED: Prednisone20 MG PO (20:07)
[2022-04-04] MEDS ORDERED: Prednisone20 MG PO (11:31)
== END 2022-04-03 20:45 | disposition home or self-care (01) ==
LOC: ER 14:07
PROVIDERS: Emergency Medicine; Physician Assistant
DX: J44.1 Chronic obstructive pulmonary disease with (acute) exacerbation (principal); I10 Essential (primary) hypertension; Z99.81 Dependence on supplemental oxygen; Z87.891 Personal history of nicotine dependence; Z88.7 Allergy status to serum and vaccine; Z88.5 Allergy status to narcotic agent; Z88.1 Allergy status to other antibiotic agents; Z79.899 Other long term (current) drug therapy; Z20.822 Contact with and (suspected) exposure to COVID-19
CPT/HCPCS: 0241U; 36415; 36600; 71046; 80053; 82803; 83880; 84484; 85025; 93005; 93010; 99285-25; J7512

== ENCOUNTER 2022-04-17 02:15 | Day surgery (SDC) | payer MEDICARE, OTHER | END 2022-04-17 14:54 | disposition home or self-care (01) | LOC: ATC 02:15 | DX: J45.901 Unspecified asthma with (acute) exacerbation (principal); F32.A Depression, unspecified; I10 Essential (primary) hypertension; Z87.891 Personal history of nicotine dependence | CPT/HCPCS: J2357 ==

== ENCOUNTER 2022-05-08 01:21 | Day surgery (SDC) | payer MEDICARE, OTHER | END 2022-05-08 14:22 | disposition home or self-care (01) | LOC: ATC 01:21 | DX: J45.901 Unspecified asthma with (acute) exacerbation (principal) | CPT/HCPCS: J2357 ==

== ENCOUNTER 2022-06-05 00:12 | Day surgery (SDC) | payer MEDICARE, OTHER | END 2022-06-05 15:05 | disposition home or self-care (01) | LOC: ATC 00:12 | DX: J45.901 Unspecified asthma with (acute) exacerbation (principal); I10 Essential (primary) hypertension; J43.9 Emphysema, unspecified; Z88.5 Allergy status to narcotic agent; Z79.899 Other long term (current) drug therapy; Z87.891 Personal history of nicotine dependence | CPT/HCPCS: 96372; J2357 ==

== ENCOUNTER 2022-07-24 00:36 | Day surgery (SDC) | payer MEDICARE, OTHER ==
[2022-07-24 13:55] VITALS: BP 155/73
== END 2022-07-24 13:55 | disposition home or self-care (01) ==
LOC: ATC 00:36
DX: J45.901 Unspecified asthma with (acute) exacerbation (principal)
CPT/HCPCS: 96372; J2357

== ENCOUNTER 2022-08-07 01:41 | Day surgery (SDC) | payer MEDICARE, OTHER ==
[2022-08-07 13:55] VITALS: BP 149/79
== END 2022-08-07 14:01 | disposition home or self-care (01) ==
LOC: ATC 01:41
DX: J45.50 Severe persistent asthma, uncomplicated (principal); I10 Essential (primary) hypertension; J43.9 Emphysema, unspecified; Z87.891 Personal history of nicotine dependence; Z88.5 Allergy status to narcotic agent; Z88.7 Allergy status to serum and vaccine; Z79.899 Other long term (current) drug therapy
CPT/HCPCS: 96372; J2357

== ENCOUNTER 2022-09-14 00:18 | Day surgery (SDC) | payer MEDICARE, OTHER ==
[2022-09-14 14:26] VITALS: BP 135/82
[2022-09-14] MEDS ORDERED: NEBI5 PO (14:48)
== END 2022-09-14 14:33 | disposition home or self-care (01) ==
LOC: ATC 00:18
DX: J45.901 Unspecified asthma with (acute) exacerbation (principal); J43.9 Emphysema, unspecified; I10 Essential (primary) hypertension; Z88.5 Allergy status to narcotic agent; Z88.8 Allergy status to other drugs, medicaments and biological substances; Z87.891 Personal history of nicotine dependence
CPT/HCPCS: 96372; J2357

== ENCOUNTER 2022-10-13 02:56 | Day surgery (SDC) | payer MEDICARE, OTHER ==
[~2022-10-13 02:56] MED LIST changes: +NEBI5 PO
[2022-10-13 10:25] VITALS: BP 177/80
== END 2022-10-13 10:39 | disposition home or self-care (01) ==
LOC: ATC 02:56
DX: J45.901 Unspecified asthma with (acute) exacerbation (principal); J44.9 Chronic obstructive pulmonary disease, unspecified
CPT/HCPCS: 96372; J2357

== ENCOUNTER 2022-10-28 01:13 | Day surgery (SDC) | payer MEDICARE, OTHER ==
[2022-10-28 14:40] VITALS: BP 160/76
== END 2022-10-28 14:50 | disposition home or self-care (01) ==
LOC: ATC 01:13
DX: J45.901 Unspecified asthma with (acute) exacerbation (principal); Z87.891 Personal history of nicotine dependence; I10 Essential (primary) hypertension; J43.9 Emphysema, unspecified
CPT/HCPCS: 96372; J2357

== ENCOUNTER 2022-11-13 00:29 | Day surgery (SDC) | payer MEDICARE, OTHER ==
[2022-11-13 14:00] VITALS: BP 161/79
== END 2022-11-13 14:07 | disposition home or self-care (01) ==
LOC: ATC 00:29
DX: J45.901 Unspecified asthma with (acute) exacerbation (principal); I10 Essential (primary) hypertension; J43.9 Emphysema, unspecified; Z87.891 Personal history of nicotine dependence; Z88.5 Allergy status to narcotic agent; Z88.7 Allergy status to serum and vaccine; Z79.899 Other long term (current) drug therapy
CPT/HCPCS: 96372; J2357

== ENCOUNTER 2023-01-15 02:09 | Day surgery (SDC) | payer MEDICARE, OTHER ==
[2023-01-15 13:30] VITALS: BP 143/71
== END 2023-01-15 13:38 | disposition home or self-care (01) ==
LOC: ATC 02:09
DX: J45.50 Severe persistent asthma, uncomplicated (principal); I10 Essential (primary) hypertension; Z87.891 Personal history of nicotine dependence
CPT/HCPCS: 96372; J2357

== ENCOUNTER 2023-01-29 02:34 | Day surgery (SDC) | payer MEDICARE, OTHER ==
[2023-01-29 14:31] VITALS: BP 143/74
== END 2023-01-29 23:01 | disposition home or self-care (01) ==
LOC: ATC 02:34
DX: J45.50 Severe persistent asthma, uncomplicated (principal); F41.9 Anxiety disorder, unspecified; J44.9 Chronic obstructive pulmonary disease, unspecified; F32.A Depression, unspecified; Z87.891 Personal history of nicotine dependence; Z88.5 Allergy status to narcotic agent
CPT/HCPCS: 96372; J2357

== ENCOUNTER 2023-02-12 01:41 | Day surgery (SDC) | payer MEDICARE, OTHER ==
[2023-02-12 10:59] VITALS: BP 152/68
== END 2023-02-12 11:17 | disposition home or self-care (01) ==
LOC: ATC 01:41
DX: J45.50 Severe persistent asthma, uncomplicated (principal); J43.8 Other emphysema; I10 Essential (primary) hypertension; Z79.899 Other long term (current) drug therapy; Z87.891 Personal history of nicotine dependence
CPT/HCPCS: 96372; J2357

== ENCOUNTER 2023-03-01 10:48 | Day surgery (SDC) | payer MEDICARE, OTHER ==
[2023-03-01 11:35] VITALS: BP 142/68
== END 2023-03-01 11:50 | disposition home or self-care (01) ==
LOC: ATC 10:48
DX: J45.50 Severe persistent asthma, uncomplicated (principal); I10 Essential (primary) hypertension; J44.9 Chronic obstructive pulmonary disease, unspecified
CPT/HCPCS: 96372; J2357

== ENCOUNTER 2023-03-22 00:27 | Day surgery (SDC) | payer MEDICARE, OTHER ==
[2023-03-22 14:02] VITALS: BP 136/68
== END 2023-03-22 14:09 | disposition home or self-care (01) ==
LOC: ATC 00:27
DX: J45.50 Severe persistent asthma, uncomplicated (principal); J44.9 Chronic obstructive pulmonary disease, unspecified; F41.9 Anxiety disorder, unspecified; Z88.5 Allergy status to narcotic agent; Z87.891 Personal history of nicotine dependence
CPT/HCPCS: 96372; J2357

== ENCOUNTER 2023-04-08 05:19 | Day surgery (SDC) | payer MEDICARE, OTHER ==
[2023-04-08 10:56] VITALS: BP 154/82
== END 2023-04-08 11:04 | disposition home or self-care (01) ==
LOC: ATC 05:19
DX: J45.50 Severe persistent asthma, uncomplicated (principal); J43.9 Emphysema, unspecified; I10 Essential (primary) hypertension; Z87.891 Personal history of nicotine dependence; Z88.5 Allergy status to narcotic agent; Z88.7 Allergy status to serum and vaccine; Z79.899 Other long term (current) drug therapy
CPT/HCPCS: 96372; J2357

== ENCOUNTER 2023-04-22 00:07 | Day surgery (SDC) | payer MEDICARE, OTHER ==
[2023-04-22 11:04] VITALS: BP 149/74
== END 2023-04-22 11:04 | disposition home or self-care (01) ==
LOC: ATC 00:07
DX: J43.9 Emphysema, unspecified (principal); I10 Essential (primary) hypertension; Z79.51 Long term (current) use of inhaled steroids; Z79.899 Other long term (current) drug therapy; Z87.891 Personal history of nicotine dependence
CPT/HCPCS: 96372; J2357

== ENCOUNTER 2023-05-13 01:23 | Day surgery (SDC) | payer MEDICARE, OTHER ==
[2023-05-13] MEDS ORDERED: Omalizumab 150 MG Syringe SC SCH (06:50)
[2023-05-13 10:08] VITALS: BP 133/72
== END 2023-05-13 10:14 | disposition home or self-care (01) ==
LOC: ATC 01:23
DX: J45.50 Severe persistent asthma, uncomplicated (principal); J43.9 Emphysema, unspecified; I10 Essential (primary) hypertension; E78.5 Hyperlipidemia, unspecified; Z88.5 Allergy status to narcotic agent; Z88.1 Allergy status to other antibiotic agents; Z88.7 Allergy status to serum and vaccine; Z79.899 Other long term (current) drug therapy
CPT/HCPCS: 96372; J2357

== ENCOUNTER 2023-05-14 13:21 | Emergency (ER) | payer MEDICARE, OTHER ==
[~2023-05-14] VITALS: Ht 162.6 cm; Wt 74.8 kg
[2023-05-14 15:35] LABS: BASOPHILS ABSOLUTE AUTO 0.06 K/mm3 (0.00-0.23); BASOPHILS PERCENT AUTO 1 % (0-2); EOSINOPHILS ABSOLUTE AUTO 0.28 K/mm3 (0.00-0.68); EOSINOPHILS PERCENT AUTO 5 % (0-6); Hematocrit 38.4 % (33.0-51.0); Hemoglobin 12.5 g/dL (11.5-16.0); IMMATURE GRAN ABSOLUTE AUTO 0.02 K/mm3 (0.00-0.10); IMMATURE GRAN PERCENT AUTO 0 % (0-1); LYMPHOCYTES ABSOLUTE AUTO 1.28 K/mm3 (0.84-5.20); LYMPHOCYTES PERCENT AUTO 23 % (21-46); MONOCYTES ABSOLUTE AUTO 0.56 K/mm3 (0.16-1.47); MONOCYTES PERCENT AUTO 10 % (4-13); Mean Corpuscular HGB 29.1 pg (26.0-34.0); Mean Corpuscular HGB Conc 32.6 g/dL (31.5-36.5); Mean Corpuscular Volume 89 fL (80-100); NEUTROPHILS ABSOLUTE AUTO 3.41 K/mm3 (1.96-9.15); NEUTROPHILS PERCENT AUTO 61 % (41-73); Platelet Count 239 K/mm3 (150-400); RDW Coefficient Variation 12.4 % (11.7-14.2); RDW Standard Deviation 40.4 fL (35.1-46.3); White Blood Cell Count 5.61 K/mm3 (4.00-11.30)
[2023-05-14] MEDS ORDERED: Prochlorperazine Edisylate 10 mg Vial IV ONE (17:15)
[2023-05-14] MEDS ORDERED: NS 1,000 ML IV SCH (17:15)
[2023-05-14] MEDS ORDERED: Ketorolac Tromethamine 15mg Vial IV ONE (17:15)
[2023-05-14] MEDS ORDERED: DiphenhydrAMINE HCl 50 MG/ML 1ML Vial IV ONE (17:15)
[2023-05-14 18:51] VITALS: BP 154/72
== END 2023-05-14 19:23 | disposition home or self-care (01) ==
LOC: ER 13:21
PROVIDERS: Physician Assistant
DX: R51.9 Headache, unspecified (principal); Z88.7 Allergy status to serum and vaccine; Z88.5 Allergy status to narcotic agent; Z88.1 Allergy status to other antibiotic agents; Z79.899 Other long term (current) drug therapy; I10 Essential (primary) hypertension; J44.9 Chronic obstructive pulmonary disease, unspecified; Z87.891 Personal history of nicotine dependence
CPT/HCPCS: 70450; 70496; 83735; 85025; 96361; 96374-59; 96375-59; 99284-25; J0780; J1200; J1885; J7030; Q9967

== ENCOUNTER 2023-05-27 02:54 | Day surgery (SDC) | payer MEDICARE, OTHER ==
[2023-05-27] MEDS ORDERED: Omalizumab 150 MG Syringe SC SCH (06:45)
[2023-05-27 11:22] VITALS: BP 145/64
== END 2023-05-27 11:20 | disposition home or self-care (01) ==
LOC: ATC 02:54
DX: J45.50 Severe persistent asthma, uncomplicated (principal); J43.9 Emphysema, unspecified; I10 Essential (primary) hypertension; E78.5 Hyperlipidemia, unspecified; Z87.891 Personal history of nicotine dependence; Z88.5 Allergy status to narcotic agent; Z88.1 Allergy status to other antibiotic agents; Z88.7 Allergy status to serum and vaccine; Z79.899 Other long term (current) drug therapy
CPT/HCPCS: 96372; J2357

== ENCOUNTER 2023-08-05 02:48 | Day surgery (SDC) | payer MEDICARE, OTHER ==
[~2023-08-05 02:48] MED LIST changes: -TIOT18
[2023-08-05] MEDS ORDERED: Omalizumab 150 MG Syringe SC SCH (07:10)
[2023-08-05] MEDS ORDERED: ATENOLOL25 MG PO (10:50)
[2023-08-05] MEDS ORDERED: ZOLOFT50 MG PO (10:52)
[2023-08-05] MEDS ORDERED: ROSUVASTATIN CA10 MG PO (10:53)
[2023-08-05] MEDS ORDERED: TRAZ50 PO (10:54)
[2023-08-05 11:10] VITALS: BP 159/81
== END 2023-08-05 11:10 | disposition home or self-care (01) ==
LOC: ATC 02:48
DX: J45.50 Severe persistent asthma, uncomplicated (principal); J43.9 Emphysema, unspecified; I10 Essential (primary) hypertension; E78.5 Hyperlipidemia, unspecified; Z87.891 Personal history of nicotine dependence; Z88.5 Allergy status to narcotic agent; Z88.1 Allergy status to other antibiotic agents; Z88.7 Allergy status to serum and vaccine; Z79.899 Other long term (current) drug therapy
CPT/HCPCS: 96372; J2357

== ENCOUNTER 2023-09-14 03:41 | Day surgery (SDC) | payer MEDICARE, OTHER ==
[~2023-09-14 03:41] MED LIST changes: +ATENOLOL25 MG PO; +ROSUVASTATIN CA10 MG PO; +TRAZ50 PO; +ZOLOFT50 MG PO
[2023-09-14] MEDS ORDERED: Omalizumab 150 MG Syringe SC SCH ×2 (07:00→11:10)
[2023-09-14 11:24] VITALS: BP 148/68
== END 2023-09-14 11:21 | disposition home or self-care (01) ==
LOC: ATC 03:41
DX: J45.50 Severe persistent asthma, uncomplicated (principal); J44.9 Chronic obstructive pulmonary disease, unspecified; F32.9 Major depressive disorder, single episode, unspecified; E78.5 Hyperlipidemia, unspecified; I10 Essential (primary) hypertension; Z88.5 Allergy status to narcotic agent
CPT/HCPCS: 96372; J2357

== ENCOUNTER 2023-09-27 03:56 | Day surgery (SDC) | payer MEDICARE, OTHER ==
[2023-09-27] MEDS ORDERED: Omalizumab 150 MG Syringe SC SCH (07:15)
[2023-09-27 11:51] VITALS: BP 158/88
== END 2023-09-27 11:51 | disposition home or self-care (01) ==
LOC: ATC 03:56
DX: J45.50 Severe persistent asthma, uncomplicated (principal); J44.9 Chronic obstructive pulmonary disease, unspecified; E78.5 Hyperlipidemia, unspecified; I10 Essential (primary) hypertension; Z87.891 Personal history of nicotine dependence; M77.8 Other enthesopathies, not elsewhere classified
CPT/HCPCS: 73110; 96372; J2357

== ENCOUNTER 2023-12-03 01:06 | Day surgery (SDC) | payer MEDICARE, OTHER ==
[2023-12-03] MEDS ORDERED: Omalizumab 150 MG Syringe SC SCH (07:15)
[2023-12-03 11:13] VITALS: BP 169/69
== END 2023-12-03 11:14 | disposition home or self-care (01) ==
LOC: ATC 01:06
DX: J45.50 Severe persistent asthma, uncomplicated (principal); J44.9 Chronic obstructive pulmonary disease, unspecified; I10 Essential (primary) hypertension; E78.5 Hyperlipidemia, unspecified; T81.82XD Emphysema (subcutaneous) resulting from a procedure, subsequent encounter; Z87.891 Personal history of nicotine dependence; Z79.899 Other long term (current) drug therapy; Z88.1 Allergy status to other antibiotic agents; Z88.5 Allergy status to narcotic agent; Z88.7 Allergy status to serum and vaccine
CPT/HCPCS: 96372; J2357

== ENCOUNTER 2023-12-17 01:49 | Day surgery (SDC) | payer MEDICARE, OTHER ==
[2023-12-17] MEDS ORDERED: Omalizumab 150 MG Syringe SC SCH ×2 (06:00→07:25)
[2023-12-17 14:20] VITALS: BP 158/84
== END 2023-12-17 14:27 | disposition home or self-care (01) ==
LOC: ATC 01:49
DX: J45.50 Severe persistent asthma, uncomplicated (principal); J44.9 Chronic obstructive pulmonary disease, unspecified; E78.5 Hyperlipidemia, unspecified; I10 Essential (primary) hypertension; Z79.899 Other long term (current) drug therapy; Z87.891 Personal history of nicotine dependence
CPT/HCPCS: 96372; J2357

== ENCOUNTER 2024-01-12 04:35 | Day surgery (SDC) | payer MEDICARE, OTHER ==
[2024-01-12] MEDS ORDERED: Omalizumab 150 MG Syringe SC SCH (07:15)
[2024-01-12 11:10] VITALS: BP 150/78
== END 2024-01-12 11:15 | disposition home or self-care (01) ==
LOC: ATC 04:35
DX: J45.50 Severe persistent asthma, uncomplicated (principal); J43.9 Emphysema, unspecified; I10 Essential (primary) hypertension; E78.5 Hyperlipidemia, unspecified; Z87.891 Personal history of nicotine dependence; Z79.899 Other long term (current) drug therapy; Z88.1 Allergy status to other antibiotic agents; Z88.7 Allergy status to serum and vaccine; Z88.5 Allergy status to narcotic agent
CPT/HCPCS: 96372; J2357

== ENCOUNTER 2024-01-26 00:32 | Day surgery (SDC) | payer MEDICARE, OTHER ==
[2024-01-26] MEDS ORDERED: Omalizumab 150 MG Syringe SC SCH (07:05)
[2024-01-26 10:58] VITALS: BP 148/71
== END 2024-01-26 11:05 | disposition home or self-care (01) ==
LOC: ATC 00:32
DX: J45.50 Severe persistent asthma, uncomplicated (principal); J43.9 Emphysema, unspecified; I10 Essential (primary) hypertension; E78.5 Hyperlipidemia, unspecified; Z87.891 Personal history of nicotine dependence; Z79.899 Other long term (current) drug therapy; Z88.5 Allergy status to narcotic agent; Z88.7 Allergy status to serum and vaccine; Z88.1 Allergy status to other antibiotic agents
CPT/HCPCS: 96372; J2357

== ENCOUNTER 2024-02-09 03:52 | Day surgery (SDC) | payer MEDICARE, OTHER ==
[2024-02-09] MEDS ORDERED: Omalizumab 150 MG Syringe SC SCH (07:15)
[2024-02-09 11:04] VITALS: BP 125/74
== END 2024-02-09 11:15 | disposition home or self-care (01) ==
LOC: ATC 03:52
DX: J45.50 Severe persistent asthma, uncomplicated (principal); J43.9 Emphysema, unspecified; I10 Essential (primary) hypertension; E78.5 Hyperlipidemia, unspecified; Z87.891 Personal history of nicotine dependence; Z79.899 Other long term (current) drug therapy; Z88.1 Allergy status to other antibiotic agents; Z88.7 Allergy status to serum and vaccine; Z88.5 Allergy status to narcotic agent
CPT/HCPCS: 96372; J2357

== ENCOUNTER 2024-03-08 03:57 | Day surgery (SDC) | payer MEDICARE, OTHER ==
[2024-03-08] MEDS ORDERED: Omalizumab 150 MG Syringe SC SCH (11:00)
[2024-03-08 11:20] VITALS: BP 154/80
== END 2024-03-08 11:24 | disposition home or self-care (01) ==
LOC: ATC 03:57
DX: J43.9 Emphysema, unspecified (principal); J45.50 Severe persistent asthma, uncomplicated; Z79.899 Other long term (current) drug therapy
CPT/HCPCS: 96372; J2357

== ENCOUNTER 2024-03-28 03:44 | Day surgery (SDC) | payer MEDICARE, OTHER ==
[~2024-03-28 03:44] MED LIST changes: +Omalizumab 150 MG Syringe SC SCH
[2024-03-28] MEDS ORDERED: Omalizumab 150 MG Syringe SC SCH (07:05)
[2024-03-28 15:02] VITALS: BP 135/70
[2024-03-28] MEDS ORDERED: METO100 PO (16:44)
== END 2024-03-28 15:15 | disposition home or self-care (01) ==
LOC: ATC 03:44
DX: J45.50 Severe persistent asthma, uncomplicated (principal); J44.9 Chronic obstructive pulmonary disease, unspecified; E78.5 Hyperlipidemia, unspecified; F32.9 Major depressive disorder, single episode, unspecified; Z79.899 Other long term (current) drug therapy; Z87.891 Personal history of nicotine dependence
CPT/HCPCS: 96372; J2357

== ENCOUNTER 2024-04-11 07:09 | Day surgery (SDC) | payer MEDICARE, OTHER ==
[~2024-04-11 07:09] MED LIST changes: +METO100 PO; -Omalizumab 150 MG Syringe SC SCH
[2024-04-11] MEDS ORDERED: Omalizumab 150 MG Syringe SC SCH (07:10)
[2024-04-11 11:11] VITALS: BP 123/61
[2024-04-11] MEDS ORDERED: CELE100 PO (11:13)
[2024-04-11] MEDS ORDERED: TRAM50 PO (11:13)
== END 2024-04-11 11:20 | disposition home or self-care (01) ==
LOC: ATC 07:09
DX: J45.50 Severe persistent asthma, uncomplicated (principal); J43.9 Emphysema, unspecified; I10 Essential (primary) hypertension; E78.5 Hyperlipidemia, unspecified; Z87.891 Personal history of nicotine dependence; Z79.899 Other long term (current) drug therapy; Z88.5 Allergy status to narcotic agent; Z88.1 Allergy status to other antibiotic agents; Z88.7 Allergy status to serum and vaccine
CPT/HCPCS: 96372; J2357

== ENCOUNTER 2024-04-27 04:57 | Day surgery (SDC) | payer MEDICARE, OTHER ==
[~2024-04-27 04:57] MED LIST changes: +CELE100 PO
[2024-04-27] MEDS ORDERED: Omalizumab 150 MG Syringe SC SCH (06:00)
[2024-04-27 11:30] VITALS: BP 132/75
== END 2024-04-27 11:42 | disposition home or self-care (01) ==
LOC: ATC 04:57
DX: J45.50 Severe persistent asthma, uncomplicated (principal); J43.9 Emphysema, unspecified; I10 Essential (primary) hypertension; E78.5 Hyperlipidemia, unspecified; Z87.891 Personal history of nicotine dependence; Z79.899 Other long term (current) drug therapy; Z88.5 Allergy status to narcotic agent; Z88.1 Allergy status to other antibiotic agents; Z88.7 Allergy status to serum and vaccine
CPT/HCPCS: 96372; J2357

== ENCOUNTER 2024-05-15 17:17 | Emergency (ER) | payer MEDICARE, OTHER ==
[~2024-05-15] VITALS: Ht 160 cm; Wt 70.3 kg
[2024-05-15 17:54] LABS: BASOPHILS ABSOLUTE AUTO 0.02 K/mm3 (0.00-0.23); BASOPHILS PERCENT AUTO 0 % (0-2); EOSINOPHILS ABSOLUTE AUTO 0.31 K/mm3 (0.00-0.68); EOSINOPHILS PERCENT AUTO 3 % (0-6); Hematocrit 39.6 % (33.0-51.0); IMMATURE GRAN ABSOLUTE AUTO 0.07 K/mm3 (0.00-0.10); IMMATURE GRAN PERCENT AUTO 1 % (0-1); LYMPHOCYTES ABSOLUTE AUTO 0.82 K/mm3 (0.84-5.20); LYMPHOCYTES PERCENT AUTO 9 % (21-46); MONOCYTES ABSOLUTE AUTO 0.88 K/mm3 (0.16-1.47); MONOCYTES PERCENT AUTO 10 % (4-13); Mean Corpuscular HGB 29.3 pg (26.0-34.0); Mean Corpuscular HGB Conc 32.8 g/dL (31.5-36.5); Mean Corpuscular Volume 89 fL (80-100); Mean Platelet Volume 10.2 fL (9.1-12.4); NEUTROPHILS ABSOLUTE AUTO 7.14 K/mm3 (1.96-9.15); NEUTROPHILS PERCENT AUTO 77 % (41-73); Platelet Count 227 K/mm3 (150-400); RDW Coefficient Variation 12.6 % (11.7-14.2); RDW Standard Deviation 41.6 fL (35.1-46.3); Red Blood Cell Count 4.43 M/mm3 (3.80-5.20); White Blood Cell Count 9.24 K/mm3 (4.00-11.30)
[2024-05-15 18:25] LABS: Albumin, Blood 3.8 g/dL (3.4-5.0); Bilirubin, Total 0.4 mg/dL (0.1-1.0); Bun/Creatinine Ratio 20.9 (12.0-20.0); Calcium, Blood 9.5 mg/dL (8.5-10.1); Creatinine, Blood 0.91 mg/dL (0.40-1.00); Globulin, Blood 3.8 g/dL (2.2-4.0); Total Protein, Blood 7.6 g/dL (6.4-8.2)
[2024-05-15] MEDS ORDERED: Zithromax250 MG PO (19:34)
[2024-05-15] MEDS ORDERED: Prednisone20 MG PO (19:34)
[2024-05-15] MEDS ORDERED: Azithromycin 250 MG Tab PO ONE (19:35)
[2024-05-15] MEDS ORDERED: PredniSONE 20 MG Tab PO ONE (19:35)
[2024-05-15 19:49] VITALS: BP 133/78
== END 2024-05-15 19:50 | disposition home or self-care (01) ==
LOC: ER 17:17
PROVIDERS: Student in an Organized Health Care Education/Training Program
DX: J06.9 Acute upper respiratory infection, unspecified (principal); J43.9 Emphysema, unspecified; I10 Essential (primary) hypertension; Z87.891 Personal history of nicotine dependence; Z88.7 Allergy status to serum and vaccine; Z88.5 Allergy status to narcotic agent; Z88.8 Allergy status to other drugs, medicaments and biological substances; Z79.899 Other long term (current) drug therapy
CPT/HCPCS: 71046; 80053; 85025; 93005; 93010; 99284-25; A9270; J7512

== ENCOUNTER 2024-06-02 02:01 | Day surgery (SDC) | payer MEDICARE, OTHER ==
[2024-06-02] MEDS ORDERED: Omalizumab 150 MG Syringe SC SCH (07:00)
[2024-06-02 16:20] VITALS: BP 147/70
== END 2024-06-02 16:24 | disposition home or self-care (01) ==
LOC: ATC 02:01
DX: J45.50 Severe persistent asthma, uncomplicated (principal); J43.9 Emphysema, unspecified; I10 Essential (primary) hypertension; E78.5 Hyperlipidemia, unspecified; Z87.891 Personal history of nicotine dependence; Z88.1 Allergy status to other antibiotic agents; Z88.5 Allergy status to narcotic agent; Z88.7 Allergy status to serum and vaccine; Z79.899 Other long term (current) drug therapy
CPT/HCPCS: 96372; J2357

== ENCOUNTER 2024-06-28 04:44 | Day surgery (SDC) | payer MEDICARE, OTHER ==
[2024-06-28] MEDS ORDERED: Omalizumab 150 MG Syringe SC SCH (07:05)
[2024-06-28 14:28] VITALS: BP 149/69
== END 2024-06-28 14:34 | disposition home or self-care (01) ==
LOC: ATC 04:44
DX: J45.50 Severe persistent asthma, uncomplicated (principal); J44.89 Other specified chronic obstructive pulmonary disease; I10 Essential (primary) hypertension; E78.5 Hyperlipidemia, unspecified; Z79.899 Other long term (current) drug therapy; Z87.891 Personal history of nicotine dependence
CPT/HCPCS: 96372; J2357

== ENCOUNTER 2024-07-13 04:02 | Day surgery (SDC) | payer MEDICARE, OTHER ==
[2024-07-13] MEDS ORDERED: Omalizumab 150 MG Syringe SC SCH (06:45)
[2024-07-13 14:47] VITALS: BP 160/72
== END 2024-07-13 14:53 | disposition home or self-care (01) ==
LOC: ATC 04:02
DX: J45.50 Severe persistent asthma, uncomplicated (principal); J44.9 Chronic obstructive pulmonary disease, unspecified; E78.5 Hyperlipidemia, unspecified; I10 Essential (primary) hypertension; Z79.899 Other long term (current) drug therapy; Z87.891 Personal history of nicotine dependence
CPT/HCPCS: 96372; J2357

== ENCOUNTER 2024-07-27 02:57 | Day surgery (SDC) | payer MEDICARE, OTHER ==
[2024-07-27] MEDS ORDERED: Omalizumab 150 MG Syringe SC SCH (10:50)
[2024-07-27 11:17] VITALS: BP 150/71
== END 2024-07-27 11:18 | disposition home or self-care (01) ==
LOC: ATC 02:57
DX: J45.50 Severe persistent asthma, uncomplicated (principal); J43.9 Emphysema, unspecified; I10 Essential (primary) hypertension; E78.5 Hyperlipidemia, unspecified; Z79.899 Other long term (current) drug therapy; Z87.891 Personal history of nicotine dependence
CPT/HCPCS: 96372; J2357

== ENCOUNTER 2024-08-10 01:28 | Day surgery (SDC) | payer MEDICARE, OTHER ==
[2024-08-10] MEDS ORDERED: Omalizumab 150 MG Syringe SC SCH (06:55)
[2024-08-10 11:05] VITALS: BP 145/69
== END 2024-08-10 11:11 | disposition home or self-care (01) ==
LOC: ATC 01:28
DX: J45.50 Severe persistent asthma, uncomplicated (principal); J44.89 Other specified chronic obstructive pulmonary disease; I10 Essential (primary) hypertension; E78.5 Hyperlipidemia, unspecified; Z87.891 Personal history of nicotine dependence; Z79.899 Other long term (current) drug therapy; Z99.81 Dependence on supplemental oxygen; Z88.5 Allergy status to narcotic agent; Z88.8 Allergy status to other drugs, medicaments and biological substances; Z88.7 Allergy status to serum and vaccine
CPT/HCPCS: 96372; J2357

== ENCOUNTER 2024-08-24 01:59 | Day surgery (SDC) | payer MEDICARE, OTHER ==
[2024-08-24] MEDS ORDERED: Omalizumab 150 MG Syringe SC SCH (06:55)
== END 2024-08-24 11:41 | disposition home or self-care (01) ==
LOC: ATC 01:59
DX: J45.50 Severe persistent asthma, uncomplicated (principal); J44.9 Chronic obstructive pulmonary disease, unspecified; I10 Essential (primary) hypertension; E78.5 Hyperlipidemia, unspecified; Z79.899 Other long term (current) drug therapy; Z88.5 Allergy status to narcotic agent; Z87.891 Personal history of nicotine dependence
CPT/HCPCS: 96372; J2357

== ENCOUNTER 2024-09-07 02:04 | Day surgery (SDC) | payer MEDICARE, OTHER ==
[2024-09-07] MEDS ORDERED: Omalizumab 150 MG Syringe SC SCH (07:10)
[2024-09-07 12:22] VITALS: BP 157/75
== END 2024-09-07 12:30 | disposition home or self-care (01) ==
LOC: ATC 02:04
DX: J45.50 Severe persistent asthma, uncomplicated (principal); J44.89 Other specified chronic obstructive pulmonary disease; I10 Essential (primary) hypertension; E78.5 Hyperlipidemia, unspecified; Z79.899 Other long term (current) drug therapy; Z88.5 Allergy status to narcotic agent; Z88.7 Allergy status to serum and vaccine; Z88.8 Allergy status to other drugs, medicaments and biological substances; Z87.891 Personal history of nicotine dependence
CPT/HCPCS: 96372; J2357

== ENCOUNTER 2024-10-05 03:43 | Day surgery (SDC) | payer MEDICARE, OTHER ==
[2024-10-05] MEDS ORDERED: Omalizumab 150 MG Syringe SC SCH (06:45)
[2024-10-05 11:34] VITALS: BP 153/63
== END 2024-10-05 11:42 | disposition home or self-care (01) ==
LOC: ATC 03:43
DX: J45.50 Severe persistent asthma, uncomplicated (principal); I10 Essential (primary) hypertension; J44.89 Other specified chronic obstructive pulmonary disease; Z79.899 Other long term (current) drug therapy; Z88.5 Allergy status to narcotic agent; Z88.7 Allergy status to serum and vaccine; Z88.1 Allergy status to other antibiotic agents; Z87.891 Personal history of nicotine dependence
CPT/HCPCS: 96372; J2357

== ENCOUNTER 2024-10-19 02:00 | Day surgery (SDC) | payer MEDICARE, OTHER ==
[2024-10-19] MEDS ORDERED: Omalizumab 150 MG Syringe SC SCH (10:35)
[2024-10-19 11:21] VITALS: BP 159/68
== END 2024-10-19 11:27 | disposition home or self-care (01) ==
LOC: ATC 02:00
DX: J45.50 Severe persistent asthma, uncomplicated (principal); J44.89 Other specified chronic obstructive pulmonary disease; I10 Essential (primary) hypertension; Z79.899 Other long term (current) drug therapy; Z88.5 Allergy status to narcotic agent; Z88.7 Allergy status to serum and vaccine; Z88.8 Allergy status to other drugs, medicaments and biological substances; Z87.891 Personal history of nicotine dependence
CPT/HCPCS: 96372; J2357

== ENCOUNTER 2024-11-02 04:20 | Day surgery (SDC) | payer MEDICARE, OTHER ==
[2024-11-02] MEDS ORDERED: Omalizumab 150 MG Syringe SC SCH (06:45)
[2024-11-02 11:52] VITALS: BP 140/83
[2024-11-02] MEDS ORDERED: PROBIOTIC1 EA14 PO (11:52)
[2024-11-02] MEDS ORDERED: FISH OIL 1,0001 EA10 PO (11:52)
[2024-11-02] MEDS ORDERED: TOPI100 PO (11:53)
== END 2024-11-02 12:01 | disposition home or self-care (01) ==
LOC: ATC 04:20
DX: J45.50 Severe persistent asthma, uncomplicated (principal); J43.9 Emphysema, unspecified; I10 Essential (primary) hypertension; E78.5 Hyperlipidemia, unspecified; Z79.51 Long term (current) use of inhaled steroids; Z99.81 Dependence on supplemental oxygen; Z87.891 Personal history of nicotine dependence; Z88.1 Allergy status to other antibiotic agents; Z88.5 Allergy status to narcotic agent; Z88.7 Allergy status to serum and vaccine
CPT/HCPCS: 96372; J2357

== ENCOUNTER 2024-12-06 02:58 | Day surgery (SDC) | payer MEDICARE, OTHER ==
[~2024-12-06 02:58] MED LIST changes: +FISH OIL 1,0001 EA10 PO; +PROBIOTIC1 EA14 PO; +TOPI100 PO
[2024-12-06] MEDS ORDERED: Omalizumab 150 MG Syringe SC SCH (07:10)
[2024-12-06 10:45] VITALS: BP 141/70
== END 2024-12-06 10:55 | disposition home or self-care (01) ==
LOC: ATC 02:58
DX: J45.50 Severe persistent asthma, uncomplicated (principal); J44.9 Chronic obstructive pulmonary disease, unspecified; I10 Essential (primary) hypertension; E78.5 Hyperlipidemia, unspecified; Z87.891 Personal history of nicotine dependence; Z79.899 Other long term (current) drug therapy; Z88.1 Allergy status to other antibiotic agents; Z88.5 Allergy status to narcotic agent; Z88.7 Allergy status to serum and vaccine
CPT/HCPCS: 96372; J2357

== ENCOUNTER 2025-01-05 07:43 | Day surgery (SDC) | payer MEDICARE, OTHER ==
[~2025-01-05 07:43] MED LIST changes: +Omalizumab 150 MG Syringe SC SCH
[2025-01-05 10:26] VITALS: BP 134/75
== END 2025-01-05 10:34 | disposition home or self-care (01) ==
LOC: ATC 07:43
DX: J45.50 Severe persistent asthma, uncomplicated (principal); J44.9 Chronic obstructive pulmonary disease, unspecified; I10 Essential (primary) hypertension; E78.5 Hyperlipidemia, unspecified; Z87.891 Personal history of nicotine dependence; Z79.899 Other long term (current) drug therapy; Z88.5 Allergy status to narcotic agent; Z88.1 Allergy status to other antibiotic agents; Z88.7 Allergy status to serum and vaccine
CPT/HCPCS: 96372; J2357

== ENCOUNTER 2025-01-19 08:07 | Day surgery (SDC) | payer MEDICARE, OTHER ==
[2025-01-19 09:46] VITALS: BP 144/68
== END 2025-01-19 09:53 | disposition home or self-care (01) ==
LOC: ATC 08:07
DX: J45.50 Severe persistent asthma, uncomplicated (principal); J44.89 Other specified chronic obstructive pulmonary disease; I10 Essential (primary) hypertension; E78.5 Hyperlipidemia, unspecified; Z79.899 Other long term (current) drug therapy
CPT/HCPCS: 96372; J2357

== ENCOUNTER 2025-02-14 10:36 | Day surgery (SDC) | payer MEDICARE, OTHER ==
[~2025-02-14 10:36] MED LIST changes: -Omalizumab 150 MG Syringe SC SCH
[2025-02-14] MEDS ORDERED: Omalizumab 150 MG Syringe SC SCH (10:40)
== END 2025-02-14 11:02 | disposition home or self-care (01) ==
LOC: ATC 10:36
DX: J45.50 Severe persistent asthma, uncomplicated (principal); J82.83 Eosinophilic asthma; J44.89 Other specified chronic obstructive pulmonary disease; J43.9 Emphysema, unspecified; I10 Essential (primary) hypertension; E78.5 Hyperlipidemia, unspecified; Z88.5 Allergy status to narcotic agent; Z88.8 Allergy status to other drugs, medicaments and biological substances; Z87.891 Personal history of nicotine dependence; Z79.899 Other long term (current) drug therapy
CPT/HCPCS: 96372; J2357

== ENCOUNTER 2025-02-28 01:25 | Day surgery (SDC) | payer MEDICARE, OTHER ==
[2025-02-28] MEDS ORDERED: Omalizumab 150 MG Syringe SC SCH (06:00)
[2025-02-28 10:40] VITALS: BP 142/69
== END 2025-02-28 10:46 | disposition home or self-care (01) ==
LOC: ATC 01:25
DX: J45.50 Severe persistent asthma, uncomplicated (principal); J82.83 Eosinophilic asthma; I10 Essential (primary) hypertension; E78.5 Hyperlipidemia, unspecified; J44.9 Chronic obstructive pulmonary disease, unspecified; Z88.5 Allergy status to narcotic agent; Z88.8 Allergy status to other drugs, medicaments and biological substances; Z87.891 Personal history of nicotine dependence
CPT/HCPCS: 96372; 99211; J2357

== ENCOUNTER 2025-03-14 00:35 | Day surgery (SDC) | payer MEDICARE, OTHER ==
[2025-03-14] MEDS ORDERED: Omalizumab 150 MG Syringe SC SCH (06:00)
[2025-03-14 10:45] VITALS: BP 118/61
== END 2025-03-14 10:52 | disposition home or self-care (01) ==
LOC: ATC 00:35
DX: J45.50 Severe persistent asthma, uncomplicated (principal); J44.89 Other specified chronic obstructive pulmonary disease; J43.9 Emphysema, unspecified; I10 Essential (primary) hypertension; E78.5 Hyperlipidemia, unspecified; Z79.51 Long term (current) use of inhaled steroids; Z79.899 Other long term (current) drug therapy; Z87.891 Personal history of nicotine dependence; Z88.1 Allergy status to other antibiotic agents; Z88.7 Allergy status to serum and vaccine
CPT/HCPCS: 96372; J2357